=== PATIENT | female | born 1930 | race Caucasian/White ===

== ENCOUNTER 2017-04-07 08:00 | Outpatient (CLI) | payer MEDICARE, OTHER | END 2017-04-07 08:01 | disposition home or self-care (01) | LOC: BICMAMMO 08:00 | PROVIDERS: ATTEND Family Medicine | DX: Z12.31 Encounter for screening mammogram for malignant neoplasm of breast (principal) | CPT/HCPCS: 77063; G0202; 77067 ==

== ENCOUNTER 2017-09-06 12:17 | Outpatient (CLI) | payer MEDICARE, OTHER | END 2017-09-06 12:18 | disposition home or self-care (01) | LOC: BICRAD 12:17 | PROVIDERS: ATTEND Family Medicine | DX: M25.431 Effusion, right wrist (principal); M15.4 Erosive (osteo)arthritis; M25.441 Effusion, right hand ==

== ENCOUNTER 2017-09-25 14:03 | Observation (INO) | payer MEDICARE, OTHER ==
[2017-09-25 14:40] LABS: #Basophils 0.1 thou/uL (0.0-0.2); #Eosinphils 0.2 thou/uL (0.0-0.7); #Lymphocytes 2.1 thou/uL (1.20-3.40); #Monocytes 0.8 thou/uL (0.11-0.59); #Neutrophils 3.9 thou/uL (1.40-6.50); %Basophils 1.4 % (0.0-1.0); %Eosinophils 2.8 % (0.0-10.0); %Lymphocytes 29.8 % (21.0-51.0); Mean Corpuscular HGB CONC 33.1 g/dL (32.0-36.0); Mean Corpuscular Hemoglobin 32.3 pg (27.0-31.0); Mean Corpuscular Volume 97.8 fl (81.0-99.0); Mean Platelet Volume 8.5 fL (7.4-10.4); Platelet Count 232 thou/uL (130-400); RBC Distribution Width 13.8 % (11.5-14.5); Red Blood Cell (RBC) Count 3.71 mill/uL (4.20-5.40)
[2017-09-25 15:01] LABS: ALT (SGPT) 11 U/L (8-55); AST (SGOT) 18 U/L (5-34); Albumin 3.9 g/dL (3.4-4.8); Alkaline Phosphatase 72 U/L (40-150); Anion Gap 14 mmol/L (10-20); BUN (Urea Nitrogen) 23 mg/dL (9.8-20.1); Bilirubin, Total 1.8 mg/dL (0.2-1.2); CK (CPK) 43 U/L (29-168); Calc. Creatinine Clearance 0 mL/min (70-130); Calcium 9.1 mg/dL (7.8-10.44); Carbon Dioxide 30 mmol/L (23-31); Chloride 100 mmol/L (98-107); Estimated GFR-MDRD 53; Globulin 3.5 g/dL (2.4-3.5); Glucose 115 mg/dL (83-110); Potassium 4.3 mmol/L (3.5-5.1); Protein, Total 7.4 g/dL (6.0-8.3); Sodium 140 mmol/L (136-145)
[2017-09-25 15:04] LABS: CKMB 0.7 ng/mL (0-6.6); Troponin I 0.082 ng/mL (< 0.028)
--- NOTE | 2017-09-25 15:05 | RAD ---
PORTABLE CHEST: Date: 09/25/17 HISTORY: Chest pain. COMPARISON: 09/02/16. FINDINGS: Heart size is enlarged. There are postop sternotomy changes and an aortic valve replacement. Lungs ar e clear of any infiltrates. Chronic appearing changes are seen. IMPRESSION: Cardiomegaly. No acute process. POS: [facility]
[2017-09-25] MEDS ORDERED: Nitroglycerin 2% Ointment 1 INCH/1 GM Packet ONE (15:18)
[2017-09-25 15:26] LABS: INR-International Normal Ratio 2.2; PTT 40.4 SEC (22.9-36.1); Prothrombin Time 24.8 SEC (12.0-14.7)
[2017-09-25] MEDS ORDERED: Simvastatin 20 MG TAB PO SCH (18:00)
[2017-09-25] MEDS ORDERED: Acetaminophen 325 MG TAB PO PRN (18:01)
[2017-09-25] MEDS ORDERED: Nitroglycerin 0.4 MG TAB (25 Tab Bottle) PO PRN (18:01)
[2017-09-25] MEDS ORDERED: Warfarin Sodium 5 MG TAB PO SCH (18:30)
[2017-09-25 19:06] VITALS: BMI 40.8
[2017-09-25] MEDS ORDERED: Ondansetron ODT 4 MG TAB SL PRN (19:39)
[2017-09-25] MEDS ORDERED: Ondansetron HCl/PF 4 MG/2 ML Vial IVP PRN (19:39)
--- NOTE | 2017-09-25 20:08 | HP ---
DATE OF SERVICE: 09/25/2017 PRIMARY CARE PROVIDER: Dr. Moshe Lerner. CHIEF COMPLAINT: "Feeling in my chest." HISTORY OF PRESENT ILLNESS: This is an 86-year-old female with cardiac history including heart failure requiring hospitalization in 2009; atrial fibrillation on full anticoagulation; hypertension; dyslipidemia; gout; who presents to the emergency room with the complaint of an abnormal feeling in her chest. She reports that it occurred today at 13:30 while she was sitting. It was occurred 1-2 times in the past, the most recent episode was 3 days ago where it occurred twice, once for one hour and once for 30 minutes. She noticed each time that her pulse would go up to the low 100s when this happens. She denies any symptoms in the past 2 days, denies any precipitating or relieving factors. She describes the feeling as a light pain in her left lower chest that was constant, lasting 30-45 minutes. She denies any lightheadedness, nausea or vomiting, she did note some shortness of breath that has since resolved. She has not been sick recently and denies any fevers or chills. She was started on a new medicine a few weeks ago for gout, does not know the name of it, denies missing any medications or any other new medications. The patient reports her last echocardiogram was about a year ago and she is scheduled for one tomorrow in Dr. Lucero' office. She also notes a 1-pound weight gain in the past 2 days, and states that she has been consistent with her Lasix dosing. In the emergency room, the patient was started on nitro paste one inch as well as 324 mg of aspirin and hospitalist called for admission. Her pacemaker was interrogated and showed brief A Fib on September 14. ALLERGIES TO MEDICATIONS: 1. CELEBREX. 2. SULFA. CURRENT MEDICATIONS: Reconciled with the list which is missing her gout medication. 1. Multivitamin daily. 2. MiraLax 1/4 capful daily as needed. 3. Tylenol extra strength 2 tablets once daily. 4. Calcium and vitamin D 600 mg 1 tablet twice daily. 5. Carvedilol 12.5 mg b.i.d. 6. Lasix 20 mg daily. 7. Flecainide 50 mg b.i.d. 8. Coumadin 5 mg at dinner. 9. Iron 325 mg once daily. 10. Simvastatin 20 mg every other day with her last dose 2 days ago. PAST MEDICAL HISTORY: 1. Coronary artery disease with history of heart failure, requiring hospitalization in 2010. 2. Atrial fibrillation. 3. Aortic valve replacement. 4. Hypertension. 5. Dyslipidemia. 6. Gout. 7. History of shingles. PAST SURGICAL HISTORY: 1. Left shoulder surgery. 2. Hemorrhoidectomy. 3. Aortic valve replacement. 4. Pacemaker. 5. Hysterectomy. 6. Bilateral eye implants. FAMILY HISTORY: Significant for a dad who of heart failure and a mom who had a heart attack. SOCIAL HISTORY: The patient denies any tobacco or alcohol. Her surrogate decision maker is her daughter, Anna Israel, phone number [phone]. The patient is a FULL CODE. REVIEW OF SYSTEMS: Negative for abdominal pain, change in urination, lightheadedness or dizziness, nausea or vomiting, fever or chills. Positive for shortness of breath, although she denies this now. All remaining review of systems are reviewed and negative. PHYSICAL EXAMINATION: VITAL SIGNS: On arrival to the emergency room, blood pressure 152/79, pulse 76 , respirations 18, saturations 94% on room air, temperature 98.4. GENERAL: Awake, alert, responsive, in no apparent distress, able to speak in full sentences. HEENT: Pupils are equal and round. Extraocular movements intact. Oral mucosa is pink and moist. NECK: Supple, nontender. LYMPHATICS: No palpable cervical or supraclavicular lymphadenopathy. VASCULAR: No carotid bruits. LUNGS: Clear to auscultation bilateral. HEART: Normal S1, S2, regular rate and rhythm, no audible murmurs. ABDOMEN: Soft. Present bowel sounds. Nontender, nondistended. EXTREMITIES: Trace pitting edema bilateral. Pulses 2+ dorsalis pedis pulses bilateral. NEUROLOGIC: Moves arms and legs equally. No focal deficits. SKIN: No visible rashes. PSYCHIATRIC: She is alert and oriented x4, euthymic and thought process is linear, logical, and goal directed. LABORATORY DATA AND IMAGING: Reviewed. 1. CBC: 7, 12, 36.4, 232. 2. INR 2.2. 3. Renal panel: 140, 4.3, 100, 30, 23, 1.0, 115. 4. Liver function test: Total bilirubin 1.8, AST 18, ALT 11, alkaline phosphatase 72. 5. Troponin 0.082. 6. BNP 697.5. 7. EKG is personally reviewed and it is a paced rhythm. 8. Chest x-ray is personally reviewed and shows cardiomegaly with no acute process. IMPRESSION: 1. Palpitations/chest pain in a patient with known coronary artery disease, and a history of heart failure. The patient is currently stable and asymptomatic. 2. Atrial fibrillation in the patient with a pacemaker, therapeutic on Coumadin. 3. Hypertension, not optimally controlled currently. 4. Dyslipidemia, on statin therapy. 5. Gout, on unknown medication. PLAN: 1. Observation status in the hospital. 2. Rule out with 3 troponins, echocardiogram tomorrow and consultation with her passenger locomotive engineer, Dr. Lucero. 3. Continuing all of her usual medications to include her cardiac medication and Coumadin as she is appropriately dosed with a therapeutic INR. 4. We will continue the nitro paste for now, removing this if needed. 5. The patient is fully anticoagulated and has received an aspirin. We will hold on any additional aspirin for now. 6. DVT prophylaxis. She is therapeutic on Coumadin. 7. Gastrointestinal prophylaxis not indicated. 8. Code status is FULL. 9. The patient is at high risk given age, comorbidities, and current presentation. 10. I reviewed the plan of care with the patient and her daughter. No questions or further needs at the end of evaluation. Of note, her daughter is her surrogate decision maker. ZAHIDA
[2017-09-25] MEDS: Carvedilol 6.25 MG TAB PO SCH (20:12)
[2017-09-25] MEDS: Flecainide 50 MG TAB PO SCH (20:12)
[2017-09-25] MEDS: Simvastatin 20 MG TAB PO SCH (20:22)
[2017-09-25 21:28] LABS: Troponin I 0.094 ng/mL (< 0.028)
[2017-09-25] MEDS: Nitroglycerin 2% Ointment 1 INCH/1 GM Packet TOP SCH (22:12)
[2017-09-26 05:13] LABS: INR-International Normal Ratio 2.1; Prothrombin Time 24.5 SEC (12.0-14.7)
[2017-09-26] MEDS: Nitroglycerin 2% Ointment 1 INCH/1 GM Packet TOP SCH ×2 (05:44→14:14)
[2017-09-26] MEDS: Acetaminophen 500 MG TAB PO SCH (09:05)
[2017-09-26] MEDS: Furosemide 20 MG TAB PO SCH (09:05)
[2017-09-26] MEDS: Carvedilol 6.25 MG TAB PO SCH ×2 (09:05→19:45)
[2017-09-26] MEDS: Flecainide 50 MG TAB PO SCH ×2 (09:05→19:46)
[2017-09-26] MEDS ORDERED: Iopamidol 370 76% 100 ML VIAL ONE (09:36)
[2017-09-26] MEDS ORDERED: Communication Order-Pharmacy FS SCH (12:45)
--- NOTE | 2017-09-26 12:49 | CON ---
DATE OF CONSULTATION: 09/26/2017 REASON FOR CONSULTATION: Unstable angina. HISTORY OF PRESENT ILLNESS: Ms. Dave is a very pleasant 86-year-old woman who is a patient of Dr. Derian Lucero. She recently presented with chest pain that began on . It lasted for 1 hour. Sh e then states that evening she had a second episode that lasted for 30 minutes. She states she did w ell on Tuesday, Tuesday, and then had a recurrent episode on Tuesday. She then proceeded to the emerg ency room with the above. No nausea, vomiting or other associated symptoms. Her troponin was felt t o be indeterminate. She is currently chest pain free. From a CV standpoint her last stress test was dated 2013 was negative for ischemia. She does have a history of aortic valve replacement, bioprosthetic valve in addition to a pacemaker. Last LVEF is 45 -50%. PAST MEDICAL HISTORY: Atrial fibrillation, aortic valve replacement (bioprosthetic valve), hypertens ion, hyperlipidemia, gout, shingles, shoulder surgery, hemorrhoidectomy, pacemaker implantation, hyst erectomy. SOCIAL HISTORY: No current tobacco or alcohol use. CURRENT MEDICATIONS: Include flecainide, Coumadin, iron, Zocor, multivitamin, MiraLax, Tylenol, calc ium, carvedilol and Lasix. REVIEW OF SYSTEMS: Ten point review of systems is reviewed as above, otherwise negative. PHYSICAL EXAMINATION: VITAL SIGNS: Blood pressure 130/56, pulse 61, temperature 98.3. GENERAL: Patient is a pleasant female who is in no acute distress. The patient appears her stated ag e. NEUROLOGIC: The patient is alert and oriented times 3 with no focal neurologic deficits. HEENT: Sclerae without icterus. Mouth has moist mucous membranes with normal pallor. NECK: No JVD. Carotid upstroke brisk. No bruits bilaterally. LUNGS: Clear to auscultation with unlabored respirations. BACK: No scoliosis or kyphosis. CARDIAC: Regular rate and rhythm with normal S1 and S2. No S3 or S4 noted. No significant rubs, mur murs, thrills, or gallops noted throughout the precordium. PMI is not displaced. There is no parast ernal heave. ABDOMEN: Soft, nontender, nondistended. No peritoneal signs present. No hepatosplenomegaly. No abn ormal striae. EXTREMITIES: 2+ femoral and 2+ dorsalis pedis pulses. No cyanosis, clubbing, or edema. SKIN: No gross abnormalities. PERTINENT LABS: Hemoglobin 12. INR 2.1, creatinine 1.0. Peak troponin 0.094. EKG shows paced rhyt hm. IMPRESSION: 1. Unstable angina. 2. Bioprosthetic valve. 3. Atrial fibrillation on Coumadin therapy. RECOMMENDATIONS: Ms. Dave's symptoms certainly suggest unstable angina. She has had a total of 4 episodes that occurred at rest, felt to be at least moderate over the last 4-5 days. Given her mild troponin elevation, I would recommend coronary angiography plus PCI. I discussed the procedure in fu ll detail with Ms. Dave. I also discussed the above with her daughter. The risks of the procedure included, but are not limited to the following: , stroke, [place], need for emergency surgery, loss of limb, bleeding, and infection, as well as a reaction to the dye causing kidney failure and needin g long-term dialysis. I also discussed the risks of PCI to include all of the above including hill ry dissection and perforation in addition to acute stent thrombosis and restenosis. All questions ab out the procedure were answered. Given the above, the patient agreed to proceed with coronary angiog schuyler and possible PCI. All questions were answered. Given the above, the patient agreed to proceed with above procedure. W e will proceed with a radial approach given INR of 2.1. If radial not approachable would then procee d with a right groin access in the next 1-2 days.
[2017-09-26] MEDS: Sodium Chloride 0.9% 1,000 ML IV SCH (13:25)
[2017-09-26] MEDS ORDERED: Heparin 10,000 UNITS/1 ML VIAL ONE (14:20)
[2017-09-26] MEDS ORDERED: Nitroglycerin 100MG/250ML BOT 250 ML ONE (14:20)
[2017-09-26] MEDS ORDERED: Verapamil 5 MG/2 ML VIAL ONE (14:20)
[2017-09-26] MEDS ORDERED: Lidocaine 1% (PF) 30 ML VIAL ONE (14:25)
[2017-09-26] MEDS ORDERED: Acetaminophen/Codeine 30-300mg Tablet PO PRN ×2 (15:05)
[2017-09-26] MEDS ORDERED: Nitroglycerin 0.4 MG TAB (25 Tab Bottle) SL PRN (15:05)
[2017-09-26] MEDS ORDERED: traMADol HCl 50 MG TAB PO PRN (15:05)
[2017-09-26] MEDS ORDERED: Sodium Chloride 0.9% 1,000 ML IV SCH (15:15)
[2017-09-26] MEDS ORDERED: Sodium Chloride 0.9% 200 ML IV SCH (15:15)
[2017-09-26] MEDS ORDERED: Warfarin Sodium 5 MG TAB PO SCH (17:00)
--- NOTE | 2017-09-26 19:11 | PDOC.PN ---
- Subjective Encounter Start Date: 09/26/17 Encounter Start Time: 18:45 Subjective: f/u for CP and HTN. No current complaints of CP. - Objective MAR Reviewed: Yes Vital Signs & Weight: Vital Signs (12 hours) Temp Pulse Resp BP Pulse Ox 09/26/17 15:15 61 14 146/63 H 94 L 09/26/17 11:05 98.3 F 61 12 130/56 L 94 L 09/26/17 09:29 90 L 09/26/17 08:00 98.6 F 65 12 09/26/17 07:10 98.6 F 65 12 143/61 H 97 Weight Weight 201 lb 6.4 oz I&O: 09/25/17 09/26/17 09/27/17 06:59 06:59 06:59 Intake Total 300 930 Output Total 700 Balance 300 230 Result Diagrams: 09/25/17 14:31 09/25/17 14:31 Additional Labs: Laboratory Tests 02/14/16 02/15/16 09/25/17 10:24 04:23 14:31 INR Troponin I 0.082 H B-Natriuretic Peptide 837.2 H 1166.3 H Lipase 09/25/17 09/25/17 09/25/17 14:31 14:31 14:31 INR 2.2 Troponin I B-Natriuretic Peptide 697.5 H Lipase 24 09/25/17 09/25/17 09/26/17 17:54 20:45 04:35 INR 2.1 Troponin I 0.090 H 0.094 H B-Natriuretic Peptide Lipase Radiology Reviewed by me: Yes (2D echo - EF 50-55%, diast dysfxn, bioprosthetic AV) EKG Reviewed by me: Yes (Tele - AV pacing) Phys Exam - Physical Examination Constitutional: NAD HEENT: PERRLA, sclera anicteric, oral pharynx no lesions Neck: no nodes, no JVD, supple, full ROM Respiratory: no wheezing, no rales, no rhonchi, clear to auscultation bilateral II/ NAE in RUSB S1, S2 Cardiovascular: RRR, no rub, gallop Gastrointestinal: soft, non-tender, no distention, positive bowel sounds Musculoskeletal: no edema, pulses present Neurological: non-focal, normal sensation, moves all 4 limbs Psychiatric: normal affect, A&O x 3 Skin: no rash, normal turgor, cap refill <2 seconds Dx/Plan (1) Chest pain Code(s): R07.9 - CHEST PAIN, UNSPECIFIED Status: Acute Comment: LHC not showing flow limiting disease, recommending medical mgmt (2) Elevated troponin I level Code(s): R74.8 - ABNORMAL LEVELS OF OTHER SERUM ENZYMES Status: Acute Comment: [facility] negative for acute obstruction/lesions, (3) HTN (hypertension) Code(s): I10 - ESSENTIAL (PRIMARY) HYPERTENSION Status: Chronic Qualifiers: Hypertension type: essential hypertension Qualified Code(s): I10 - Essential (primary) hypertension Comment: Continue Coreg 12.5mg bid (4) CKD (chronic kidney disease), stage III Code(s): N18.3 - CHRONIC KIDNEY DISEASE, STAGE 3 (MODERATE) Status: Chronic Comment: Avoid nephrotoxic meds and limit contrast exposure, continue IVF's post -cath - Plan out of bed/ambulate, DVT proph w/SCDs Stable overall -: Continue IVF's another 24h -: Continue Coreg 12.5mg BID -: D/C Nitro ointment -: Continue Coumadin 5mg daily * Home in am 09/27/17
[2017-09-26] MEDS: Simvastatin 20 MG TAB PO SCH (19:46)
[2017-09-27] MEDS: Sodium Chloride 0.9% 1,000 ML IV SCH ×2 (01:58→09:59)
[2017-09-27] MEDS ORDERED: Furosemide 40 MG/4 ML VIAL ONE (09:53)
[2017-09-27] MEDS: Carvedilol 6.25 MG TAB PO SCH (09:57)
[2017-09-27] MEDS: Flecainide 50 MG TAB PO SCH (09:58)
[2017-09-27] MEDS: Furosemide 20 MG TAB PO SCH (09:58)
[2017-09-27] MEDS: Acetaminophen 500 MG TAB PO SCH (09:58)
[2017-09-27] MEDS: Furosemide 20 MG/2 ML VIAL SLOW IVP SCH ×2 (11:35→16:04)
[2017-09-27 16:00] VITALS: BP 129/58; TEMP 98.5
[2017-09-27] MEDS ORDERED: Furosemide 20 MG/2 ML VIAL SLOW IVP SCH (16:45)
--- NOTE | 2017-09-28 02:36 | DIS ---
DATE OF ADMISSION: 09/25/2017 DATE OF DISCHARGE: 09/27/2017 DISCHARGE DIAGNOSES: 1. Chest pain, non-cardiac. 2. Elevated troponin I secondary to demand ischemia. 3. Diastolic dysfunction with preserved ejection fraction of 55%. 4. Bioprosthetic aortic valve with chronic anticoagulation with Coumadin. 5. Hypertension, stable. 6. Chronic kidney disease, stage 3, stable. CONSULTATIONS: Dr. Jain with Cardiology Service. PERTINENT LABORATORY AND X-RAY FINDINGS: Troponin I ranged between 0.082 to 0.094. BNP 698, previou sly noted on 02/15/2016. CBC showed a white blood cell count of 7.0, hemoglobin 12, hematocrit 36, p latelet count 232. PT 24.5, INR 2.1. Portable chest x-ray dated 09/25/2017 showed cardiomegaly with out acute process. A 2D transthoracic echocardiogram dated 09/26/2017 showed ejection fraction of 50 %-55%. Diastolic dysfunction noted. Uiofbcmi-bs-jheftr left atrial enlargement. Gznj-fy-zeyqvykj m itral valve regurgitation. Bioprosthetic aortic valve noted. HOSPITAL COURSE: Patient was observed on the telemetry unit after initial presentation for chest benny n. The patient underwent extensive evaluation including serial troponins, which were positive x3. D ue to patient's history of hypertension and dyslipidemia, patient underwent evaluation by the cardiol ogy service with left heart catheterization showing no flow limiting disease. A 2D transthoracic ech ocardiogram was performed showing ejection fraction of 50%-55% with diastolic dysfunction and moderat e-to-severe left atrial enlargement. Postoperatively, the patient was continued on IV fluids for glory al prophylaxis, however, developed pulmonary edema and shortness of breath with mild hypoxia, resolvi ng with IV and oral Lasix. Telemetry monitoring showed AV pacing with heart rates in the 60s, and pa fly overall remained clinically stable during observation. I have examined the patient at the time of discharge and discussed pertinent laboratory findings and followup instructions. The patient and family verbalized understanding and agreement and will discharge home on 09/27/2017. DISCHARGE MEDICATIONS: 1. Acetaminophen 1000 mg p.o. daily p.r.n. 2. Calcium carbonate 1 capsule p.o. b.i.d. 3. Coreg 12.5 mg p.o. b.i.d. 4. Ferrous sulfate 325 mg p.o. daily. 5. Flecainide 50 mg p.o. b.i.d. 6. Lasix 20 mg p.o. daily. 7. MiraLax 17 grams p.o. daily. 8. vitamin 1 tab p.o. daily. 9. Simvastatin 20 mg p.o. q.48 hours. 10. Coumadin 5 mg daily, except Fridays. FOLLOWUP: The patient will follow up with her primary care provider, Dr. Moshe Lerner within 7 days o f discharge. Patient will follow up with Dr. Derian Lucero with [facility] in 2-3 weeks after discharge. Patient will follow up with the [facility]in [facility] on 10/05/2017 at 8:20 a.m. P atient will follow up with [facility] on 10/05/2017 at 8: 20 a.m. CONDITION ON DISCHARGE: Stable. ACTIVITY: Ad sunita. DIET: Coumadin prudent. CODE STATUS: FULL. DISPOSITION: Home, 09/27/2017.
--- NOTE | 2017-10-15 15:45 | EKG ---
Test Reason : Blood Pressure : / mmHG Vent. Rate : 081 BPM Atrial Rate : 108 BPM P-R Int : 000 ms QRS Dur : 190 ms QT Int : 446 ms P-R-T Axes : 000 -72 108 degrees QTc Int : 518 ms AV sequential or dual chamber electronic pacemaker Confirmed by KATHERINE PISANO, LUCILA ([id number]), assistant editor JOSE GUADALUPE LOYA ([id number]) on 10/15/2017 3:45:21 PM Referred By: Confirmed By:LUCILA MURPHY MD
== END 2017-09-27 17:25 | disposition home or self-care (01) ==
LOC: ERS 14:03 → 2SW 18:19
PROVIDERS: ADMIT Family Medicine; ATTEND Family Medicine
DX: R07.89 Other chest pain (principal); I13.0 Hypertensive heart and chronic kidney disease with heart failure and stage 1 through stage 4 chronic kidney disease, or unspecified chronic kidney disease; N18.3 Chronic kidney disease, stage 3 (moderate); I50.9 Heart failure, unspecified; I25.110 Atherosclerotic heart disease of native coronary artery with unstable angina pectoris; E78.5 Hyperlipidemia, unspecified; I24.8 Other forms of acute ischemic heart disease; I48.91 Unspecified atrial fibrillation; M10.9 Gout, unspecified; Z79.899 Other long term (current) drug therapy; Z79.01 Long term (current) use of anticoagulants; Z88.2 Allergy status to sulfonamides; Z88.8 Allergy status to other drugs, medicaments and biological substances
CPT/HCPCS: 71045; 80053; 82550; 82553; 83690; 83880; 84484 ×2; 85025; 85610 ×2; 85730; 93005; 93306; 93454; 94760 ×3; 96361 ×2; 96374; 96376; 99285; C1769; G0378; 36415; A4216; J1644; J1940; J2001

== ENCOUNTER 2018-04-19 11:10 | Outpatient (CLI) | payer MEDICARE, OTHER | END 2018-04-19 11:11 | disposition home or self-care (01) | LOC: BICMAMMO 11:10 | PROVIDERS: ATTEND Family Medicine | DX: Z12.31 Encounter for screening mammogram for malignant neoplasm of breast (principal); N63.21 Unspecified lump in the left breast, upper outer quadrant; R92.1 Mammographic calcification found on diagnostic imaging of breast; Z80.3 Family history of malignant neoplasm of breast | CPT/HCPCS: 77063; 77067 ==

== ENCOUNTER 2018-04-26 08:47 | Outpatient (CLI) | payer MEDICARE, OTHER ==
--- NOTE | 2018-04-26 10:50 | ULT ---
LEFT BREAST ULTRASOUND LIMITED: HISTORY: An 87-year-old female who presents for additional views of the left breast and left breast ultrasound . FINDINGS: Area of concern in the left breast is at 3 o'clock 7 cm from the nipple. There is a poorly circumscr ibed hypoechoic mass measuring 0.5 x 0.6 x 0.7 cm in size. This is suspicious and corresponds to the mammographic finding. IMPRESSION: BIRADS category 4, suspicious finding. Poorly circumscribed solid mass at 3 o'clock 7 cm from the ni pple. Ultrasound-guided biopsy is recommended. Findings were discussed with the patient who was in agreement. Additionally, referring physician's o ffice will be contacted by [facility] in regards to scheduling for the ultrasound-guided biopsy. CODE CR POS: [facility]
== END 2018-04-26 08:48 | disposition home or self-care (01) ==
LOC: BICMAMMO 08:47
PROVIDERS: ATTEND Family Medicine
DX: N63.23 Unspecified lump in the left breast, lower outer quadrant (principal); R92.1 Mammographic calcification found on diagnostic imaging of breast; Z80.3 Family history of malignant neoplasm of breast
CPT/HCPCS: 76642; 77065; G0279

== ENCOUNTER → 2018-05-08 | Day surgery (SDC) | payer MEDICARE, OTHER ==
--- NOTE | 2018-05-08 15:31 | ULT ---
ULTRASOUND GUIDED CORE BIOPSY OF THE LEFT BREAST: Indication: Left breast mass at the 3 o'clock position, 6 cm from the nipple. Comparison: Diagnostic left breast ultrasound dated 04-26-18. TECHNIQUE: Confirmation of Coumadin cessation was made with the Coumadin clinic prior to the procedure. The mey picious abnormality in the left breast at the 3 o'clock position, 6-7 cm from the nipple was identifi ed. Informed consent was obtained. Site overlying the left breast was prepped and draped in the usual sterile fashion. Buffered 1% Lidocaine was administered to overlying subcutaneous tissues. Under ult rasound guidance, four separate core samples were obtained of the left breast mass lesion. Patient to lerated the biopsy without difficulty. Pressure was held at the biopsy site until hemostatis was obta ined. Follow up left breast mammogram for confirmation of placement. IMPRESSION: BIRADS category 4 - suspicious abnormality. Status post ultrasound guided core biopsy of the left breast mass seen at the 3 o'clock position, 6-7 cm from the nipple. POS: [facility]
== END ==
LOC: BICULT 12:24
PROVIDERS: ATTEND Family Medicine
PROC: 0HBU3ZX Excision of Left Breast, Percutaneous Approach, Diagnostic (ICD-10-PCS; principal; 2018-05-08)
DX: C50.812 Malignant neoplasm of overlapping sites of left female breast (principal); Z17.0 Estrogen receptor positive status [ER+]; Z79.01 Long term (current) use of anticoagulants; Z79.899 Other long term (current) drug therapy; Z88.2 Allergy status to sulfonamides; Z88.6 Allergy status to analgesic agent
CPT/HCPCS: 19083; 88305; 88361

== ENCOUNTER 2018-05-15 15:47 | Outpatient (CLI) | payer MEDICARE, OTHER ==
[2018-05-15 16:38] LABS: #Basophils 0.1 thou/uL (0.0-0.2); #Eosinphils 0.2 thou/uL (0.0-0.7); #Lymphocytes 2.5 thou/uL (1.20-3.40); #Monocytes 0.8 thou/uL (0.11-0.59); #Neutrophils 3.9 thou/uL (1.40-6.50); %Basophils 1.2 % (0.0-1.0); %Eosinophils 2.3 % (0.0-10.0); %Lymphocytes 33.5 % (21.0-51.0); %Monocytes 10.6 % (0.0-10.0); %Neutrophils 52.4 % (42.0-75.0); Hemoglobin 12.5 g/dL (12.0-16.0); Mean Corpuscular HGB CONC 32.1 g/dL (32.0-36.0); Mean Corpuscular Hemoglobin 33.4 pg (27.0-31.0); Mean Platelet Volume 8.4 fL (7.4-10.4); Platelet Count 275 thou/uL (130-400); RBC Distribution Width 13.6 % (11.5-14.5); Red Blood Cell (RBC) Count 3.74 mill/uL (4.20-5.40); White Blood Cell (WBC) Count 7.4 thou/uL (4.8-10.8)
[2018-05-15 16:42] LABS: PTT 36.7 SEC (22.9-36.1); Prothrombin Time 22.3 SEC (12.0-14.7)
[2018-05-15 16:56] LABS: Anion Gap 13 mmol/L (10-20); BUN (Urea Nitrogen) 26 mg/dL (9.8-20.1); Calc. Creatinine Clearance 0 mL/min (70-130); Calcium 9.2 mg/dL (7.8-10.44); Carbon Dioxide 35 mmol/L (23-31); Chloride 100 mmol/L (98-107); Estimated GFR-MDRD 48; Glucose 93 mg/dL (83-110); Potassium 3.9 mmol/L (3.5-5.1); Sodium 144 mmol/L (136-145)
--- NOTE | 2018-05-15 17:34 | RAD ---
FRONTAL AND LATERAL IMAGING OF CHEST: Date: 05/15/18 COMPARISON: 04/13/10. HISTORY: Preoperative patient. FINDINGS: There is a dual lead transvenous pacing device inserted via a left subclavian approach. Midline sharpe otomy wires are present. Mechanical valve overlies region of aortic valve. There is prominence of the cardiac silhouette. There is no pneumothorax, pleural fluid, focal consolidation, or alveolar edema. Stable sclerotic focus noted within proximal right humerus. IMPRESSION: Stable appearance of the chest as detailed above. POS: [facility]
--- NOTE | 2018-05-16 09:25 | EKG ---
Test Reason : Blood Pressure : / mmHG Vent. Rate : 076 BPM Atrial Rate : 076 BPM P-R Int : 102 ms QRS Dur : 194 ms QT Int : 466 ms P-R-T Axes : 071 -77 103 degrees QTc Int : 524 ms AV sequential or dual chamber electronic pacemaker When compared with ECG of 25-SEP-2017 14:08, Vent. rate has decreased BY [address] Marry STEINBERG ([id number]) on 05/16/2018 9:24:45 AM Referred By: SYDNEY Confirmed By:DR. Marry STEINBERG
== END 2018-05-15 15:48 | disposition home or self-care (01) ==
LOC: LABBT 15:47
PROVIDERS: ATTEND Specialist
DX: Z01.818 Encounter for other preprocedural examination (principal); C50.912 Malignant neoplasm of unspecified site of left female breast; Z17.0 Estrogen receptor positive status [ER+]
CPT/HCPCS: 71046; 80048; 85025; 85610; 85730; 93005; 93010

== ENCOUNTER 2018-05-23 07:28 | Day surgery (SDC) | payer MEDICARE, OTHER ==
[2018-05-15 16:15] VITALS: BMI 38.2
--- NOTE | 2018-05-23 09:36 | NM ---
LEFT BREAST LYMPHOSCINTIGRAPHY: CLINICAL HISTORY: An 87-year-old female with biopsy-diagnosed ductal carcinoma. TECHNIQUE: Informed consent was obtained. The patient was escorted to the lymphoscintigraphy suite. The patien t was placed into the supine position. The left breast was prepped and draped in a standard sterile fashion. Subsequently, four separate intradermal injections, totalling 0.419 millicuries, of technet ium 99m filtered sulfur colloid, subcutaneous, were injected in a periareolar distribution into the l eft breast. There were no procedural complications. The patient was subsequently imaged scintigraphically. FINDINGS: Imaging does reveal four separate aliquots of radiotracer about the periareolar aspect of the left br east. Upon 15 minutes of imaging, there is markie activity localizing to the left axilla. IMPRESSION: 1. Technically successful left breast lymphoscintigraphy. 2. Radiotracer activity localized to the left axillary lymph nodes. POS: [facility]
[2018-05-23] MEDS ORDERED: CEFAZOLIN 2 GM/50 ML BAG ONE (09:41)
[2018-05-23] MEDS ORDERED: Ketorolac Tromethamine 30 MG/ML VIAL ONE (09:41)
[2018-05-23 09:53] LABS: INR-International Normal Ratio 1.3; Prothrombin Time 16.2 SEC (12.0-14.7)
[2018-05-23 09:54] LABS: PTT 31.8 SEC (22.9-36.1)
[2018-05-23] MEDS ORDERED: Lidocaine 1% PF 5 ML VIAL ONE (10:42)
[2018-05-23] MEDS ORDERED: Ondansetron PF 4 MG/2 ML Vial ONE (10:42)
[2018-05-23] MEDS ORDERED: PROPOFOL 200 MG/20 ML VIAL ONE (10:42)
[2018-05-23] MEDS ORDERED: ePHEDrine 50 MG/ML VIAL ONE (10:42)
[2018-05-23] MEDS ORDERED: PHENYLEPHRINE-NS 100 MCG/ML 10 ML SYRINGE ONE (10:42)
[2018-05-23] MEDS ORDERED: Isosulfan Blue 50 MG/5 ML VIAL ONE (12:46)
[2018-05-23] MEDS ORDERED: Bupivacaine HCl 0.5%/Epinephrine 1:200,000/PF 30 ml Vial ONE ×2 (12:46→14:24)
[2018-05-23] MEDS ORDERED: Ketamine 50 MG/ML (10ML VIAL) ONE (12:59)
[2018-05-23] MEDS ORDERED: Fentanyl 100 MCG/2 ML VIAL ONE ×2 (12:59→15:45)
--- NOTE | 2018-05-23 15:36 | MMO ---
SPECIMEN RADIOGRAPH: 05/23/18 INDICATION: Status post excisional biopsy for left breast mass. Patient previously has undergone lymphoscintigra phy prior to the procedure. FINDINGS: Single view from XI specimen reveals a partially imaged wire with an S-shaped marking clip in additio n to erika shaped hyperdensities. IMPRESSION: Specimen radiograph as above. POS: [facility]
[2018-05-23] MEDS ORDERED: traMADol HCl 50 MG TAB ONE (18:04)
--- NOTE | 2018-05-24 12:58 | OP ---
DATE OF PROCEDURE: 05/23/2018 PREOPERATIVE DIAGNOSIS: Left breast cancer. POSTOPERATIVE DIAGNOSIS: Left breast cancer. OPERATIONS PERFORMED: Left axillary sentinel lymph node biopsy, ultrasound-guided left breast needle localization, left breast needle localized lumpectomy. ANESTHESIA: General endotracheal. INDICATIONS: The patient is an 87-year-old female. Recent mammography revealed a lesion in the outer aspect of the left breast. This was biopsied and found to be a malignancy. After discussion of options, she presents this time for breast-conserving surgery and sentinel node biopsy. Preoperatively, she had lymphoscintigraphy performed revealing a left axillary sentinel lymph node. DESCRIPTION OF OPERATION: Informed consent was obtained. The patient was taken to the operating room where general anesthesia was obtained with the patient in supine position. The left breast was infiltrated with 2.5 mL of Lymphazurin in the periareolar subdermal tissue and massaged for 5 minutes. Breast and axilla were prepped with ChloraPrep and draped in sterile fashion. Attention was turned first to the axilla. Local anesthetic was infiltrated using 0.25% Marcaine with epinephrine. A transverse incision was created in the inferior aspect of the axilla and dissection was carried through the skin and subcutaneous tissue. Dissection was carried out within the axilla utilizing the Neoprobe to identify areas of maximum radio intensity. There was one dominant sentinel lymph node that was identified. This was somewhat firm and enlarged. This was dissected circumferentially and all investing lymphatics divided between clamps and 3-0 silk ties and the specimen was passed off the field. Further inspection within the axilla revealed no evidence of other blue-stained lymph nodes nor any significant radioactive material. I was able to palpate one additional lymph node. This was dissected and removed in a similar fashion. The wound was closed in layers with 3-0 and 4-0 Monocryl. Additional local anesthetic was infiltrated during closure. Dermabond was placed externally. Attention was then turned to the breast. Using ultrasound, I was able to identify the area of the prior biopsy site at the 3 o'clock radian about 7-8 cm from the nipple. The area of the malignancy was marked on the skin in a grid-type fashion. I then placed a localizing needle in a lateral to medial fashion through the concerning lesion. Local anesthetic was infiltrated and transverse incision was created based upon the needle insertion site. Dissection was carried through the skin and subcutaneous tissue. Flaps were raised superiorly and inferiorly. I grasped the tissue and to which the needle entered and dissected a wide lumpectomy specimen around the needle. The specimen was removed intact with what appeared to be good margins around the needle. It was removed from within the breast and marked with localizing sutures. This was then submitted for specimen mammography, which revealed a clip present within the lesion. Electrocautery was used to obtain hemostasis. The wound was irrigated. It was closed in layers with 3-0 and 4-0 Monocryl suture and Dermabond was placed externally. There were no complications. Blood loss was negligible. The patient tolerated the procedure well and was taken to recovery room in stable condition. Job ID: [id number]
== END 2018-05-23 18:40 | disposition home or self-care (01) ==
LOC: SDC 07:28
PROVIDERS: ATTEND Specialist
PROC: 0HBU0ZZ Excision of Left Breast, Open Approach (ICD-10-PCS; principal; 2018-05-23)
PROC: 07B60ZX Excision of Left Axillary Lymphatic, Open Approach, Diagnostic (ICD-10-PCS; 2018-05-23)
DX: C50.812 Malignant neoplasm of overlapping sites of left female breast (principal); C77.3 Secondary and unspecified malignant neoplasm of axilla and upper limb lymph nodes; Z17.0 Estrogen receptor positive status [ER+]; I13.0 Hypertensive heart and chronic kidney disease with heart failure and stage 1 through stage 4 chronic kidney disease, or unspecified chronic kidney disease; N18.3 Chronic kidney disease, stage 3 (moderate); I50.22 Chronic systolic (congestive) heart failure; I48.91 Unspecified atrial fibrillation; E78.5 Hyperlipidemia, unspecified; B02.23 Postherpetic polyneuropathy; M19.90 Unspecified osteoarthritis, unspecified site; Z95.0 Presence of cardiac pacemaker; Z90.710 Acquired absence of both cervix and uterus; Z88.2 Allergy status to sulfonamides; Z88.6 Allergy status to analgesic agent; Z79.01 Long term (current) use of anticoagulants; Z79.899 Other long term (current) drug therapy
CPT/HCPCS: 19301; 38525; 38900; 76098; 78195; 85610; 85730; 88307; 88342; A9541; Q9968; 36415; J0131; J0670; J1885; J2001; J2405; J2704; J3010; J3490

== ENCOUNTER 2018-06-14 10:09 | Outpatient (CLI) | payer MEDICARE, OTHER ==
--- NOTE | 2018-06-14 12:05 | BD ---
BONE DENSITOMETRY USING DEXA: Date: 06/14/18 HISTORY: Postmenopausal screening for osteoporosis. FINDINGS: Lumbar Spine: BMD (g/cm2) L1 0.792 T-Score: -1.8 L2 0.798 T-Score: -2.1 L3 0.805 T-Score: -2.5 L4 0.967 T-Score: -0.9 L1-L4 0.849 T-Score: -1.8 Femoral Neck: 0.490 T-Score: -3.2 Total Femur: 0.817 T-Score: -1.0 IMPRESSION: Osteoporosis. POS: OFF
== END 2018-06-14 10:10 | disposition home or self-care (01) ==
LOC: BICMAMMO 10:09
PROVIDERS: ATTEND Internal Medicine Hematology & Oncology
DX: Z13.820 Encounter for screening for osteoporosis (principal); Z79.890 Hormone replacement therapy; M81.0 Age-related osteoporosis without current pathological fracture
CPT/HCPCS: 77080

== ENCOUNTER 2018-08-21 16:59 | Observation (INO) | payer MEDICARE, OTHER ==
[2018-08-21 17:31] LABS: #Basophils 0.1 thou/uL (0.0-0.2); #Eosinphils 0.2 thou/uL (0.0-0.7); #Lymphocytes 2.5 thou/uL (1.20-3.40); #Monocytes 0.9 thou/uL (0.11-0.59); #Neutrophils 4.2 thou/uL (1.40-6.50); %Basophils 1.4 % (0.0-1.0); %Eosinophils 3.1 % (0.0-10.0); %Lymphocytes 31.3 % (21.0-51.0); %Monocytes 11.2 % (0.0-10.0); Hemoglobin 12.3 g/dL (12.0-16.0); Mean Corpuscular HGB CONC 31.7 g/dL (32.0-36.0); Mean Corpuscular Hemoglobin 31.8 pg (27.0-31.0); Mean Platelet Volume 8.3 fL (7.4-10.4); Platelet Count 250 thou/uL (130-400); RBC Distribution Width 13.1 % (11.5-14.5); Red Blood Cell (RBC) Count 3.89 mill/uL (4.20-5.40); White Blood Cell (WBC) Count 7.8 thou/uL (4.8-10.8)
--- NOTE | 2018-08-21 17:45 | RAD ---
Portable frontal chest radiograph: 08/21/2018 COMPARISON: 09/25/2017 HISTORY: Chest pressure and shortness of breath FINDINGS: Stable transvenous pacing device, midline sternotomy wires, and mechanical cardiac valve. N o pneumothorax, pleural fluid, focal consolidation, or alveolar edema. Stable prominence of the cardiac silhouette. IMPRESSION: Stable appearance of the chest.
[2018-08-21 17:56] LABS: ALT (SGPT) 9 U/L (8-55); AST (SGOT) 16 U/L (5-34); Albumin 3.9 g/dL (3.4-4.8); Alkaline Phosphatase 73 U/L (40-150); Anion Gap 11 mmol/L (10-20); BUN (Urea Nitrogen) 31 mg/dL (9.8-20.1); Bilirubin, Total 1.5 mg/dL (0.2-1.2); CK (CPK) 43 U/L (29-168); Calc. Creatinine Clearance 0 mL/min (70-130); Calcium 9.4 mg/dL (7.8-10.44); Carbon Dioxide 33 mmol/L (23-31); Chloride 100 mmol/L (98-107); Estimated GFR-MDRD 42; Globulin 3.5 g/dL (2.4-3.5); Glucose 118 mg/dL (83-110); Lipase 38 U/L (8-78); Potassium 3.8 mmol/L (3.5-5.1); Protein, Total 7.4 g/dL (6.0-8.3); Sodium 140 mmol/L (136-145)
[2018-08-21] MEDS ORDERED: Furosemide 40 MG/4 ML VIAL ONE (18:24)
[2018-08-21] MEDS ORDERED: Nitroglycerin 2% Ointment 1 INCH/1 GM Packet ONE (18:24)
[2018-08-21 18:39] LABS: INR-International Normal Ratio 2.4; PTT 38.7 SEC (22.9-36.1); Prothrombin Time 26.3 SEC (12.0-14.7)
[2018-08-21 19:56] LABS: Troponin I 0.033 ng/mL (< 0.028)
[2018-08-22 00:31] LABS: Troponin I 0.037 ng/mL (< 0.028)
[2018-08-22 01:15] VITALS: BMI 39.9
[2018-08-22] MEDS ORDERED: Acetaminophen 325 MG TAB PO PRN (01:45)
[2018-08-22] MEDS: Potassium Chloride 10 MEQ TAB PO SCH (08:28)
[2018-08-22] MEDS: Flecainide 50 MG TAB PO SCH ×2 (08:28→19:25)
[2018-08-22] MEDS: Carvedilol 25 MG TAB PO SCH ×2 (08:28→17:50)
[2018-08-22] MEDS: Furosemide 40 MG TAB PO SCH (08:30)
[2018-08-22] MEDS ORDERED: Polyethylene Glycol 3350 17 GM Packet PO PRN (12:00)
[2018-08-22] MEDS ORDERED: Ondansetron PF 4 MG/2 ML Vial IVP PRN (12:00)
[2018-08-22] MEDS ORDERED: Ondansetron ODT 4 MG TAB PO PRN (12:00)
[2018-08-22] MEDS ORDERED: hydrALAZINE 20 MG/ML VIAL SLOW IVP PRN (12:00)
[2018-08-22] MEDS ORDERED: cloNIDine 0.1 MG TAB PO PRN (12:00)
[2018-08-22] MEDS: Furosemide 40 MG/4 ML VIAL SLOW IVP SCH (13:22)
[2018-08-22] MEDS: Acetaminophen 500 MG TAB PO PRN ×2 (13:24→21:25)
[2018-08-22] MEDS ORDERED: Warfarin Sodium 5 MG TAB PO SCH (17:00)
[2018-08-22] MEDS ORDERED: Ferrous Sulfate 325 MG TAB PO SCH (21:00)
[2018-08-22] MEDS ORDERED: VITAMIN D3 PO SCH (21:00)
[2018-08-22] MEDS ORDERED: CALCIUM CARBONATE PO SCH (21:00)
[2018-08-22] MEDS ORDERED: Atorvastatin Calcium 10 MG TAB PO SCH (21:00)
[2018-08-22] MEDS ORDERED: Famotidine 20 MG TAB PO SCH (21:00)
[2018-08-23] MEDS: Furosemide 40 MG/4 ML VIAL SLOW IVP SCH (05:56)
[2018-08-23 06:20] LABS: INR-International Normal Ratio 2.4; Prothrombin Time 26.5 SEC (12.0-14.7)
[2018-08-23 06:26] LABS: Band 3 % (5-11); Hemoglobin 11.2 g/dL (12.0-16.0); Lymphocytes 33 % (21-51); MDiff Complete? YES; Mean Corpuscular HGB CONC 32.3 g/dL (32.0-36.0); Mean Corpuscular Hemoglobin 32.1 pg (27.0-31.0); Mean Corpuscular Volume 99.4 fL (78.0-98.0); Mean Platelet Volume 8.9 fL (7.4-10.4); Monocytes 14 % (0-10); Neutrophil 49 % (42-75); Platelet Count 218 thou/uL (130-400); RBC Distribution Width 13.4 % (11.5-14.5); Reactive Lymphocytes 1 % (0-10); Red Blood Cell (RBC) Count 3.47 mill/uL (4.20-5.40); White Blood Cell (WBC) Count 8.2 thou/uL (4.8-10.8)
[2018-08-23 06:48] LABS: Anion Gap 11 mmol/L (10-20); BUN (Urea Nitrogen) 37 mg/dL (9.8-20.1); Calc. Creatinine Clearance 44 mL/min (70-130); Calcium 8.8 mg/dL (7.8-10.44); Carbon Dioxide 35 mmol/L (23-31); Chloride 99 mmol/L (98-107); Estimated GFR-MDRD 39; Glucose 98 mg/dL (83-110); Magnesium 2.3 mg/dL (1.6-2.6); Potassium 3.6 mmol/L (3.5-5.1); Sodium 141 mmol/L (136-145)
[2018-08-23 07:08] VITALS: TEMP 97.8
--- NOTE | 2018-08-23 07:39 | HP ---
PRIMARY CARE PROVIDER: Moshe Lerner MD CHIEF COMPLAINT: Chest pain and shortness of breath. HISTORY OF PRESENT ILLNESS: This is an 87-year-old female, who presents to [facility] complaining of approximately 24 to 48-hour history of left upper chest wall pressure in addition to increasing shortness of breath over the last 2 to 3 days. The patient's history is significant for diastolic heart failure as well as atrial fibrillation and bioprosthetic aortic valve replacement on chronic anticoagulation with Coumadin. The patient states she has been compliant with her medication regimen and takes Lasix 40 mg daily. The patient noticed mild swelling of her ankles, but no orthopnea. The patient denies any fever, chills, nausea, vomiting, or diarrhea. The patient denies any exposure history or recent travel. The patient denied any unilateral weakness. The patient also reported increased palpitations over the last 24 hours and states this is usually her atrial fibrillation. The patient states that she is slated to start a chemotherapy regimen due to a diagnosis of breast cancer, which was diagnosed in May of 2018. The patient has been on hormonal suppression therapy and will start the infusion treatments on an outpatient basis on 08/23/2018. In the emergency room, the patient underwent general evaluation including chest imaging showing minimal pulmonary edema. EKG showed a paced rhythm and screening metabolic survey showed mild elevation to troponin I, which is chronic. The patient received IV Lasix 40 mg x1 in the emergency room and transdermal nitroglycerin. The patient was symptomatically improved with this intervention and is currently stable. PAST MEDICAL HISTORY: 1. Diastolic congestive heart failure with a preserved ejection fraction 50% to 55%. 2. Chronic atrial fibrillation with chronic anticoagulation with Coumadin. 3. Bioprosthetic aortic valve replacement on chronic anticoagulation with Coumadin. 4. Coronary artery disease, chronic and stable. 5. Chronic elevated troponin I secondarily to demand ischemia. 6. Hypertension. 7. Chronic kidney disease stage 3. 8. Invasive ductal breast carcinoma, grade 1, status post lumpectomy. PAST SURGICAL HISTORY: 1. Status post left shoulder repair. 2. Status post hemorrhoidectomy. 3. Status post bioprosthetic aortic valve replacement. 4. Status post pacemaker placement. 5. Status post hysterectomy. 6. Status post bilateral lens implants. 7. Status post breast lumpectomy with grade 1 invasive ductal carcinoma. CURRENT MEDICATIONS: 1. Calcium carbonate 1 capsule p.o. b.i.d. 2. Ferrous sulfate 325 mg p.o. at bedtime. 3. Flecainide 50 mg p.o. b.i.d. 4. Tylenol 1000 mg p.o. daily p.r.n. 5. MiraLAX 4 g p.o. daily. 6. Potassium chloride 10 mEq p.o. daily. 7. vitamin 1 tablet p.o. daily. 8. Simvastatin 20 mg p.o. q.48 hours. 9. Coumadin 5 mg p.o. daily except Fridays. 10. Coreg 12.5 mg p.o. b.i.d. ALLERGIES: TO CELEBREX AND SULFA. FAMILY HISTORY: Father of complications of congestive heart failure. Mother with history of coronary artery disease and myocardial infarction. SOCIAL HISTORY: The patient resides in [place], [place]. Accompanied by her two daughters. No current alcohol, tobacco, or illicit drug use. Medical power of research attorney is Stephenie Israel, the patient's daughter. Ambulatory with the use of a rolling walker. REVIEW OF SYSTEMS: CONSTITUTIONAL: Negative for weight loss or gain, ability to conduct usual activities. SKIN: Negative for rash, itching. EYES: Negative for double vision, pain. ENT/MOUTH: Negative for nose bleeding, neck stiffness, pain, tenderness. CARDIOVASCULAR: Negative for palpitations, dyspnea on exertion, orthopnea. RESPIRATORY: Negative for shortness of breath, wheezing, cough, hemoptysis, fever or night sweats. GASTROINTESTINAL: Negative for poor appetite, abdominal pain, heartburn, nausea, vomiting, constipation, or diarrhea. GENITOURINARY: Negative for urgency, frequency, dysuria, nocturia. MUSCULOSKELETAL: Negative for pain, swelling. NEUROLOGIC/PSYCHIATRIC: Negative for anxiety, depression. ALLERGY/IMMUNOLOGIC: Negative for skin rash, bleeding tendency. Otherwise, negative except as stated per HPI. PHYSICAL EXAMINATION: VITAL SIGNS: On admission; blood pressure 137/62, pulse 62, respiratory rate 15, temperature 97.8 degrees Fahrenheit, and O2 saturation 94% on room air. GENERAL APPEARANCE: This is an 87-year-old female, alert and oriented x3, pleasant, responsive, smiling, in no acute distress. HEENT: Pupils are equal, round, and reactive to light and accommodation. Extraocular muscles are intact. No scleral icterus. No conjunctival injection. Nares are patent. Op is clear. Teeth in good repair. NECK: Supple. No cervical adenopathy. No thyromegaly. No carotid bruits. No JVD appreciated. Cervical spine with full active and passive range of motion. No meningeal signs noted. CHEST: Lungs are clear to auscultation bilaterally. CARDIOVASCULAR: S1 and S2 with a 2 to 3/6 systolic ejection murmur in the right and left upper sternal border. ABDOMEN: Rounded, soft, nontender, and nondistended. Bowel sounds are positive in all 4 quadrants. There is no hepatosplenomegaly. No abdominal bruits. No rebound or guarding appreciated. EXTREMITIES: Warm and dry with fair turgor. No clubbing, cyanosis, or asymmetric edema appreciated. Pulses palpable distally at the dorsalis pedis, posterior tibial, and popliteal arteries bilaterally. Capillary refill less than 2 seconds. NEUROLOGIC: Cranial nerves 2 through 12 are grossly intact. No focal or lateralizing signs appreciated. PERTINENT LAB AND X-RAY FINDINGS: Sodium 140, potassium 3.8, chloride 100, CO2 of 33, BUN 31, creatinine 1.21, estimated GFR 42, glucose 118, calcium 9.4, and total bilirubin 1.5. LFTs within normal limits. Troponin I ranged between 0.033 to 0.037. BNP 829, previously noted 698 on 09/25/2017. CBC showed a white blood cell count of 7.8, hemoglobin 12.3, hematocrit 39, MCV 100, and platelet count 250 with normal differential. PT 26.3, INR 2.4, and PTT 38.7. Portable chest x-ray dated 08/21/2018, showed no acute cardiopulmonary process. EKG dated. EKG dated 08/21/2018, by my interpretation shows electronically ventricular paced rhythm in the 80s. ASSESSMENT AND PLAN: 1. Acute on chronic diastolic congestive heart failure exacerbation. The patient will be observed on the telemetry unit. We will continue Lasix 40 mg IV b.i.d. Serial I's and O's and daily weights. Repeat 2D transthoracic echocardiogram for accurate ejection fraction. 2. Dyspnea secondarily to acute on chronic diastolic congestive heart failure exacerbation, stable. Suspect secondary to mild volume overload. No current oxygen requirement or hypoxia. 3. Chronic kidney disease stage 3. Stable currently. Avoid nephrotoxic agents and limit contrast exposure. Serial creatinine monitoring. 4. Demand ischemia secondarily to acute on chronic diastolic congestive heart failure exacerbation. Stable currently. No current evidence to suggest acute coronary syndrome. 5. Chronic anticoagulation. Continue Coumadin 5 mg daily. Repeat PT/INR in the a.m. Currently, INR 2.4 and therapeutic. 6. Bioprosthetic aortic valve replacement. Stable currently. Continue Coumadin 5 mg daily. 2D transthoracic echocardiogram pending. 7. Prophylaxis. Sequential compression devices while in bed. Pepcid 20 mg p.o. b.i.d. 8. Code status is full. Surrogate medical decision maker is the patient's daughter. Job ID: [id number]
[2018-08-23 08:28] LABS: PTT 48.2 SEC (22.9-36.1)
[2018-08-23] MEDS: Carvedilol 25 MG TAB PO SCH (08:52)
[2018-08-23] MEDS: Potassium Chloride 10 MEQ TAB PO SCH (08:52)
[2018-08-23] MEDS: Furosemide 40 MG TAB PO SCH (08:52)
[2018-08-23] MEDS: Flecainide 50 MG TAB PO SCH (08:52)
[2018-08-23] MEDS ORDERED: Calcium Carbonate + Vit D 1 TAB PO SCH (09:00)
[2018-08-23] MEDS ORDERED: Prenatal Vitamin 1 TAB PO SCH (09:00)
[2018-08-23 11:38] VITALS: BP 138/65
--- NOTE | 2018-08-24 08:43 | DIS ---
DATE OF ADMISSION: 08/21/2018 DATE OF DISCHARGE: 08/23/2018 DISCHARGE DIAGNOSES: 1. Acute on chronic diastolic congestive heart failure with ejection fraction of 50% to 55%. 2. Dyspnea secondary to acute on chronic diastolic congestive heart failure, resolved. 3. Chronic kidney disease, stage 3, stable. 4. Demand ischemia secondary to diastolic congestive heart failure, stable. 5. Chronic anticoagulation with Coumadin. 6. Status post bioprosthetic aortic valve replacement on chronic anticoagulation with Coumadin. CONSULTATIONS: None. PERTINENT LABORATORY AND X-RAY FINDINGS: Creatinine ranged between 1.21 to 1.30. Estimated GFR ranged between 39 to 42. Troponin I ranged between 0.033 to 0.037. BNP 829, previously noted 698 on 09/25/2017. TSH 3.43. PT is 26.5, INR 2.4 on 08/23/2018. Portable chest x-ray dated 08/21/2017 showed no acute infiltrate. HOSPITAL COURSE: The patient was observed on the telemetry unit after initially presenting with increased shortness of breath, chest pain in the context of known chronic diastolic congestive heart failure. The patient was treated for mild exacerbation of congestive heart failure with IV Lasix 40 mg b.i.d. The patient clinically improved with supportive management, diuretic therapy, and general observation. 2D transthoracic echocardiogram was performed with final interpretation pending at the time of this dictation. The patient overall remained clinically stable throughout the hospital course with telemetry monitoring showing a paced rhythm in the 80s. I have examined the patient at the time of discharge and discussed followup instructions. The patient verbalized understanding and agreement and ready for discharge on 08/23/2018. DISCHARGE MEDICATIONS: 1. Calcium carbonate with vitamin D3 one capsule p.o. b.i.d. 2. Ferrous sulfate 325 mg p.o. at bedtime. 3. Flecainide 50 mg p.o. b.i.d. 4. Lasix 40 mg p.o. daily. 5. MiraLAX 4 g p.o. daily p.r.n. 6. Potassium chloride 10 mEq p.o. daily. 7. vitamin 1 tablet p.o. daily. 8. Simvastatin 20 mg p.o. q.48 hours. 9. Coumadin 5 mg p.o. daily except Fridays. 10. Coreg 12.5 mg p.o. b.i.d. FOLLOWUP: The patient may follow up with her primary care provider, Dr. Moshe Lerner within 7 days of discharge. The patient will follow up with Dr. Lashae Lucero with [facility] on 08/29/2018 at 12:00 p.m. The patient will follow up with the [facility] for PT/INR monitoring for Coumadin. CONDITION ON DISCHARGE: Fair. ACTIVITY: Ad-sunita. DIET: Heart healthy. CODE STATUS: Full. DISPOSITION: Home with Home Health Services with [facility], 08/23/2018. Job ID: [id number]
--- NOTE | 2018-08-26 10:30 | EKG ---
Test Reason : CP Blood Pressure : / mmHG Vent. Rate : 088 BPM Atrial Rate : 088 BPM P-R Int : 000 ms QRS Dur : 188 ms QT Int : 460 ms P-R-T Axes : 000 -72 107 degrees QTc Int : 556 ms Electronic ventricular pacemaker Confirmed by HERMELINDA GILL ([id number]), rewrite editor JOSE GUADALUPE LOYA ([id number]) on 08/26/2018 10:30:55 AM Referred By: BRIDGET Confirmed By:HERMELINDA GILL
== END 2018-08-23 13:58 | disposition home health service (06) ==
LOC: ERS 16:59 → ERHOLD 18:30 → 2NO 08-22 00:59
PROVIDERS: ADMIT Emergency Medicine; ATTEND Emergency Medicine
DX: I13.0 Hypertensive heart and chronic kidney disease with heart failure and stage 1 through stage 4 chronic kidney disease, or unspecified chronic kidney disease (principal); N18.3 Chronic kidney disease, stage 3 (moderate); I50.33 Acute on chronic diastolic (congestive) heart failure; I25.10 Atherosclerotic heart disease of native coronary artery without angina pectoris; I24.8 Other forms of acute ischemic heart disease; Z85.3 Personal history of malignant neoplasm of breast; Z79.01 Long term (current) use of anticoagulants; Z79.899 Other long term (current) drug therapy; Z88.2 Allergy status to sulfonamides; Z88.6 Allergy status to analgesic agent; Z95.0 Presence of cardiac pacemaker; Z95.2 Presence of prosthetic heart valve; Z98.890 Other specified postprocedural states
CPT/HCPCS: 71045; 80048; 80053; 82550; 82553; 83690; 83735; 83880; 84443; 84484 ×2; 85007; 85025; 85027; 85610 ×2; 85730 ×2; 93005; 93306; 96374; 96376 ×2; 99285; G0378 ×2; 36415; J1940

== ENCOUNTER 2018-11-09 22:41 | Inpatient (IN) | payer MEDICARE, OTHER ==
--- NOTE | 2018-11-09 23:10 | RAD ---
FRONTAL RADIOGRAPH CHEST: 11/09/18 COMPARISON: 08/21/18 HISTORY: Pain, dyspnea. FINDINGS: There is stable prominence of the cardiac silhouette. Stable midline sternotomy wires, dual lead arias svenous pacing device, and mechanical aortic valve. There is a nonspecific stable sclerotic focus wit hin the proximal right humerus, unchanged when compared to studies dating back to 09/02/16. Postsurgic al anchors overlie the left humeral head. IMPRESSION: Stable appearance of the chest - no focal consolidation or alveolar edema. POS: OFF
[2018-11-09 23:13] LABS: #Eosinphils 0.1 thou/uL (0.0-0.7); #Lymphocytes 0.7 thou/uL (1.20-3.40); #Monocytes 1.1 thou/uL (0.11-0.59); #Neutrophils 7.3 thou/uL (1.40-6.50); %Basophils 0.4 % (0.0-1.0); %Eosinophils 1.5 % (0.0-10.0); %Lymphocytes 7.6 % (21.0-51.0); %Monocytes 11.9 % (0.0-10.0); %Neutrophils 78.7 % (42.0-75.0); Mean Corpuscular HGB CONC 33.3 g/dL (32.0-36.0); Mean Corpuscular Hemoglobin 32.8 pg (27.0-31.0); Mean Corpuscular Volume 98.5 fL (78.0-98.0); Mean Platelet Volume 8.1 fL (7.4-10.4); Platelet Count 252 thou/uL (130-400); RBC Distribution Width 13.1 % (11.5-14.5); Red Blood Cell (RBC) Count 3.94 mill/uL (4.20-5.40); White Blood Cell (WBC) Count 9.3 thou/uL (4.8-10.8)
[2018-11-09] MEDS ORDERED: Acetaminophen 500 MG TAB ONE (23:21)
[2018-11-09] MEDS ORDERED: cefTRIAXone\\ROCEPHIN 1 GM VIAL ONE (23:21)
[2018-11-09 23:38] LABS: ALT (SGPT) 9 U/L (8-55); AST (SGOT) 17 U/L (5-34); Alkaline Phosphatase 75 U/L (40-150); Anion Gap 15 mmol/L (10-20); BUN (Urea Nitrogen) 33 mg/dL (9.8-20.1); Bilirubin, Total 2.5 mg/dL (0.2-1.2); CK (CPK) 51 U/L (29-168); Calc. Creatinine Clearance 0 mL/min (70-130); Calcium 9.2 mg/dL (7.8-10.44); Carbon Dioxide 29 mmol/L (23-31); Chloride 99 mmol/L (98-107); Estimated GFR-MDRD 45; Globulin 3.6 g/dL (2.4-3.5); Glucose 160 mg/dL (83-110); Potassium 4.2 mmol/L (3.5-5.1); Protein, Total 7.6 g/dL (6.0-8.3); Sodium 139 mmol/L (136-145)
[2018-11-09 23:59] LABS: CKMB 0.6 ng/mL (0-6.6)
[2018-11-10] MEDS ORDERED: Azithromycin 500 MG VIAL ONE (00:01)
[2018-11-10 00:08] LABS: Bilirubin Negative (Negative); Blood, Urine Negative (Negative); Clarity Turbid (Clear); Glucose, Urine (Dipstick) Normal (Negative); Leukocyte Negative Leu/uL (Negative); Nitrite Negative (Negative); Protein, Urine (Dipstick) 30 mg/dL (Neg-Trace); RBC/HPF 0-3 HPF (0-3); Squamous Epithelial None Seen HPF (0-3); Urobilinogen 3 mg/dL (Less than 2); WBC/HPF 0-3 HPF (0-3)
[2018-11-10 00:09] LABS: Bacteria/HPF 1+ HPF (None Seen)
[2018-11-10] MEDS ORDERED: Furosemide 40 MG/4 ML VIAL ONE (00:57)
[2018-11-10 02:00] VITALS: BMI 40.7
[2018-11-10] MEDS ORDERED: Ondansetron ODT 4 MG TAB SL PRN (02:05)
[2018-11-10] MEDS ORDERED: Ondansetron PF 4 MG/2 ML Vial IVP PRN (02:05)
[2018-11-10 02:53] LABS: Troponin I 0.195 ng/mL (< 0.028)
[2018-11-10] MEDS ORDERED: Acetaminophen 325 MG TAB PO PRN (03:35)
--- NOTE | 2018-11-10 04:22 | HP ---
CHIEF COMPLAINT: Shortness of breath. HISTORY OF PRESENT ILLNESS: This patient is an 87-year-old female with a history of congestive heart failure with diastolic dysfunction and systolic dysfunction with an EF of 45% to 50% on echocardiogram from 08/23 of this year. The patient also has a bioprosthetic aortic valve, on chronic anticoagulation with Coumadin for a history of atrial fibrillation. She also has a pacemaker in place, chronic kidney disease. The patient reports that on 11/09/2018, she was getting her teeth clean. She took prophylactic antibiotics which were four 500 mg pills, although she is not sure what they are and subsequently, did receive her teeth cleaning. She had some chills following this, but she reported that it has happened in the past when she has taken prophylactic antibiotics and thought it was a reaction to the medications. She also experienced some shortness of breath and has noted some recent weight gain as well. She reports that she has not had significant urine output since on the last 24-48 hours, she has no cough or a chest pressure sensation in the lower anterior chest, epigastric area. She reports associated rhinorrhea and some dizziness. REVIEW OF SYSTEMS: She reports some peripheral edema. Otherwise, all systems reviewed, all pertinent positives and negatives noted in the history of present illness. PAST MEDICAL HISTORY: Notable for the above-mentioned congestive heart failure with diastolic and systolic dysfunction with an EF of 45% to 50%; atrial fibrillation, on anticoagulation with Coumadin; bioprosthetic aortic valve, coronary artery disease, chronically elevated troponin, hypertension, chronic kidney disease stage 3; history of invasive ductal breast carcinoma grade 1, status post lumpectomy. PAST SURGICAL HISTORY: Left shoulder repair, hemorrhoidectomy, bioprosthetic aortic valve replacement, pacemaker placement, hysterectomy, bilateral lens implants, breast lumpectomy. FAMILY HISTORY: Father of congestive heart failure complications. Mother had coronary artery disease, prior ME. SOCIAL HISTORY: No alcohol, drugs, or tobacco. She is a full code and her daughter is her surrogate decision maker and power of county attorney. ALLERGIES: SULFA, CELECOXIB. HOME MEDICATIONS: Medication list is still being addressed. It appears she is on: 1. Warfarin 5 mg p.o. daily. 2. Simvastatin 20 mg p.o. every other day. 3. Multivitamin p.o. daily. 4. Lasix 40 mg daily. 5. Potassium 10 mEq daily. 6. Flecainide 50 mg b.i.d. 7. Ferrous sulfate 325 at bedtime. 8. Coreg 12.5 b.i.d. 9. Calcium with vitamin D one p.o. b.i.d. 10. MiraLAX p.r.n. PHYSICAL EXAMINATION: VITAL SIGNS: Temperature is 97.9, pulse 63, respirations 18, O2 saturation 97% on 2 L nasal cannula, BP 112/57. GENERAL APPEARANCE: Age-appropriate female. She is in no distress. She is awake and alert. She is a bit tachypneic. HEENT: PERRL. She has no OP lesions. NECK: Supple and symmetric. There is no JVD noted. No thyromegaly. HEART: Regular with 1-2/6 systolic murmur heard primarily at the left sternal border. LUNGS: Notable for some bibasilar rales, slightly worse on the right than the left with fair air exchange. ABDOMEN: Soft, nontender, and nondistended. Positive bowel sounds. No masses. No organomegaly. NEUROLOGICAL: The patient appears to be intact with spontaneous movement of extremities. No focal deficits. PSYCH: Normal affect and behavior. LABORATORY DATA: White count 9.2, hemoglobin 13.0, platelets 252. Sodium 139, potassium 4.2, chloride 99, CO2 is 29, BUN 33, creatinine 1.15, glucose 160, total bilirubin is 2.5, AST 17, ALT 19. Troponin 0.044, subsequent 0.195. BNP 645. Urinalysis essentially negative. Chest x-ray shows cardiomegaly with some mild vascular engorgement. IMPRESSION AND PLAN: 1. Dyspnea, appears to likely be due to some mild decompensated congestive heart failure. The patient has a history of elevated BNP and makes difficult to interpret her current levels. She has not been significantly lower than her current level since 2016. She received a dose of IV Lasix in the emergency department, has not responded significantly to that. We will attempt another IV dose with some Zaroxolyn and continue to try to diurese. Also possible she could have some underlying pneumonia. She is covered with Rocephin and azithromycin. We will need to have a followup chest x-ray. This is supported by the fact that she had 100.9 temperature in the emergency department as well. We will continue to treat for community-acquired pneumonia. 2. History of congestive heart failure with systolic and diastolic dysfunction with acute exacerbation. Again, trying to diurese. 3. Chronic kidney disease. Current renal function is on par with her usual numbers. 4. Elevated bilirubin. The patient has chronic elevation, she is only very minimally above her baseline. 5. Elevated troponin. Again, with 87-year-old female with compromise renal function, her numbers are likely appropriate to the scenario and not necessarily representing a demand ischemia. We will continue to trend and keep her on telemetry for now. 6. History of atrial fibrillation, on anticoagulation. We will check coags and consider pacemaker interrogation. 7. Low-grade fever without white count. The patient did have her teeth clean and concerning for the possibility that she may have had a bit of bacteremia related to that. She did take prophylactic antibiotics and will continue to cover with Rocephin and azithromycin. Job ID: [id number]
[2018-11-10 05:27] LABS: Anion Gap 11 mmol/L (10-20); BUN (Urea Nitrogen) 36 mg/dL (9.8-20.1); Calc. Creatinine Clearance 45 mL/min (70-130); Calcium 8.6 mg/dL (7.8-10.44); Carbon Dioxide 32 mmol/L (23-31); Chloride 101 mmol/L (98-107); Estimated GFR-MDRD 39; Glucose 140 mg/dL (83-110); Potassium 4.3 mmol/L (3.5-5.1); Sodium 140 mmol/L (136-145)
[2018-11-10] MEDS ORDERED: Metolazone 5 MG TAB PO SCH (05:30)
[2018-11-10 05:33] LABS: Troponin I 0.265 ng/mL (< 0.028)
[2018-11-10] MEDS: Furosemide 40 MG/4 ML VIAL SLOW IVP SCH ×2 (06:18→16:03)
[2018-11-10] MEDS ORDERED: Simvastatin 20 MG TAB PO SCH (07:00)
[2018-11-10] MEDS: Levalbuterol HCl 0.63 MG/3 ML NEB NEB SCH ×3 (07:26→21:45)
[2018-11-10] MEDS: Flecainide 50 MG TAB PO SCH ×2 (10:35→21:09)
--- NOTE | 2018-11-10 17:56 | PDOC.HOSPP ---
- Subjective Subjective: breathing better, no chest pain or palp cough mostly dry, no fever after hospitalization - Objective Vital Signs & Weight: Vital Signs (12 hours) Temp Pulse Resp BP Pulse Ox 11/10/18 16:00 96.3 F L 62 18 129/58 L 99 11/10/18 14:40 60 16 100 11/10/18 11:47 97.9 F 65 18 114/56 L 99 11/10/18 07:29 98.2 F 70 20 114/55 L 100 Weight Weight 197 lb 8 oz I&O: 11/09/18 11/10/18 11/11/18 06:59 06:59 06:59 Intake Total 230 Output Total 0 Balance 230 Result Diagrams: 11/09/18 23:06 11/10/18 04:55 ROS - Review of Systems All systems: All other ROS were reviewed and found negative. - Medication Medications: Active Medications Generic Name Dose Route Start Last Admin Trade Name Freq PRN Reason Stop Dose Admin Flecainide Acetate 50 mg 11/10/18 09:00 11/10/18 10:35 Tambocor PO 50 mg BID RICARDA Administration Furosemide 40 mg 11/10/18 06:00 11/10/18 16:03 Lasix SLOW IVP 40 mg 0600,1400 RICARDA Administration Doxycycline Hyclate 100 mg/ 100 mls @ 100 mls/hr 11/10/18 04:00 11/10/18 15: 59 Sodium Chloride IVPB 100 mls 0400,1600 RICARDA Administration Levalbuterol HCl 0.63 mg 11/10/18 07:00 11/10/18 14:40 Xopenex NEB 0.63 mg V1CI-IC RICARDA Administration - Exam NAD, awake alert Eye: PERRL, anicteric sclera ENT: no oropharyngeal lesions, dry oral mucosa Neck: supple, no JVD Heart: RRR, no rubs Respiratory: no wheezes, rhonchi Gastrointestinal: soft, non-distended, normal bowel sounds Extremities: no cyanosis, no edema Neurological: CN's grossly intact, no focal deficits Psychiatric: normal affect, A&O x 3 Hosp A/P (1) Acute exacerbation of CHF (congestive heart failure) Code(s): I50.9 - HEART FAILURE, UNSPECIFIED Status: Acute Qualifiers: Heart failure type: combined systolic and diastolic Qualified Code(s): I50.43 - Acute on chronic combined systolic (congestive) and diastolic ( congestive) heart failure (2) PNA (pneumonia) Code(s): J18.9 - PNEUMONIA, UNSPECIFIED ORGANISM Status: Suspected Qualifiers: Pneumonia type: due to unspecified organism (3) Atrial fibrillation Code(s): I48.91 - UNSPECIFIED ATRIAL FIBRILLATION Status: Chronic Plan: paroxysmal (4) CKD (chronic kidney disease), stage III Code(s): N18.3 - CHRONIC KIDNEY DISEASE, STAGE 3 (MODERATE) Status: Chronic (5) HTN (hypertension) Code(s): I10 - ESSENTIAL (PRIMARY) HYPERTENSION Status: Chronic Qualifiers: (6) Prosthetic replacement of heart valve Code(s): Z95.2 - PRESENCE OF PROSTHETIC HEART VALVE Status: Chronic Plan: aortic bioprosthetic valve - Plan continue gentle diuresis, on lasix and recieved one dose of metolazone nebs, ceftriaxone and doxy, will get cxr in 24hrs after diuresis for any underlying infiltrate cardiology consultation prior ef of 45% watch for renal function to mobilize as tolerated hemostable although sbp around 100
[2018-11-10] MEDS: Carvedilol 3.125 MG TAB PO SCH (18:34)
--- NOTE | 2018-11-10 20:36 | CON ---
DATE OF CONSULTATION: 11/10/2018 INDICATION FOR CONSULTATION: An 87-year-old female with a history of congestive heart failure, systolic and diastolic with a history of pacemaker insertion. She is status post aortic valve replacement with bioprosthetic valve, I believe, in 2009. She also has a history of some COPD. 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 She actually has been doing relatively well. She was instructed last when I saw her in the office to take her Lasix 40 mg alternating with 60 mg every other day. Unfortunately, she has not been doing that. She is only taking 40 mg a day. She went to the dentist on and evening she noted that she was short of breath, had some chest heaviness. Also, she was found to have mild elevation of the temperature with shortness of breath and apparently had some fever after she had been to the dentist for some dental cleaning. She presented to the emergency room and was admitted. She also was found to have 1+ bacteria in the urine as well as indeterminate troponin I of 0.04, increased up to 0.19, and then up to 0.265. Evaluation of the pacemaker indicated that she had 3 episodes of what appeared to be atrial fibrillation back on 11/01 and also on 11/08. On 11/08, she had a 2.5 hour event around 2:43 in the afternoon. She had another event around 6 o'clock in the evening about for 9-1/2 minutes. She had an earlier episode that lasted about 2 hours back on 11/01. Since that time, she has been relatively stable, did not see evidence of atrial fibrillation at this time. She has had no ventricular high rates associated with the atrial fibrillation. At this time, she is feeling better, but still has some shortness of breath. She has minimal edema. Her BNP was elevated at 646. She gained 2 pounds in one day prior to being admitted to the hospital. Her blood pressures at home have been anywhere between the high 90s to low one-teens to 120s and has been relatively stable otherwise. Her blood pressure also has been kind of elevated in the 160s at home, but at this time is slightly is on the low side, but otherwise she denies any complaints of chest discomfort except for having some pressure yesterday evening. PAST MEDICAL HISTORY: Significant for congestive heart failure, both systolic and diastolic. She has a history of pacemaker insertion. She has a history of COPD. She has a history of intermittent atrial fibrillation, chronic kidney disease, osteoporosis, and anemia. She had history of shingles in 2016. She has history of gout, hyperlipidemia, hypertension. She has had breast cancer with lumpectomy. She is status post pacemaker insertion. She has hemorrhoids. She has had left arm surgery. She has had a partial hysterectomy. MEDICATIONS: Prior to admission include: 1. Coumadin. 2. Lasix. 3. Zocor. 4. Ferrous sulfate. 5. Flecainide. 6. Calcium with vitamin D. 7. Coreg. 8. Potassium. 9. Arimidex. 10. Metolazone on p.r.n. basis. ALLERGIES: NONE. FAMILY HISTORY: Noncontributory. REVIEW OF SYSTEMS: HEENT: She denied any new HEENT complaints. PULMONARY: She had no pulmonary complaints except for shortness of breath. CARDIOVASCULAR: No palpitations. There was one episode of chest discomfort or heaviness. GASTROINTESTINAL: She had no complaints from a GI standpoint such as nausea, vomiting, diarrhea, hematuria, or dysuria. EXTREMITIES: She does have some mild lower extremity edema. NEUROLOGIC: No complaints of seizures or syncope. PHYSICAL EXAMINATION: GENERAL: Reveals a well-developed, well-nourished, elderly female, who is in no acute distress at this time. VITAL SIGNS: Blood pressure 114/56; heart rate is 65, which is pacing in A and V; she is afebrile; respiratory rate is 18; and O2 saturation 99%. HEENT: Shows head to be normocephalic and atraumatic. NECK: Carotid pulses are present without any bruits. CHEST: Clear to auscultation without rales, rhonchi, or wheezing. CARDIOVASCULAR: At this time reveals a regular rate and rhythm with only occasional ectopy. There are no gross murmurs, heaves, thrills, bruits, or rubs. ABDOMEN: Shows obesity with positive bowel sounds. There is no organomegaly or masses noted. No tenderness. EXTREMITIES: Show no clubbing or cyanosis. She has decreased pedal pulses, but they are present. She has mild lower extremity edema. NEUROLOGIC: She appears to be fully intact for someone of her age. LABORATORY DATA: Shows a WBC of 9.3, hemoglobin was 13, hematocrit 38.9 with platelet count 252,000. Sodium was 140, potassium 4.3, BUN was 36, creatinine 1.3, blood sugar was 140. Troponin I as noted above. BNP was 646. She did have 1+ bacteria in the urine. Chest x-ray was unremarkable. EKG shows 100% pacing with atrium and ventricle. IMPRESSION: 1. Mild congestive heart failure exacerbation with mild fluid overload. We will certainly try to continue to diurese the patient as long as her blood pressure remains stable. It is quite possible that she develop some mild bacteremia after going to the dentist and had dental cleanings and she did have a mild low-grade temperature and she did have antibiotics prior to going to the dentist, but she also says she has gained 2 pounds prior on last 2 days, which indicates just volume overload. I suggest she continue to watch her fluids and to take the Lasix as directed. I had suggest earlier that she take 1-1/2 tablets every other day in order to decrease her volume overload. If this does not successful, then we will need to add Zaroxolyn on a regular basis, but not on a daily basis. 2. History of aortic valve replacement. This appears to be stable at this time. I did not hear any AI or murmurs. 3. Mild decrease in left ventricular systolic function. Last ejection fraction showed 45% to 50%, but she has both diastolic and systolic heart failure. 4. Dyslipidemia. We will continue on her medications. 5. History of chronic obstructive pulmonary disease. This appears to be stable at this time. At this time, I believe she is relatively stable from a cardiac standpoint. We can try to obtain an echocardiogram to see if there has been any interval change since her last echocardiogram was performed in August 2018, which showed ejection fraction of 45% to 50% with diastolic dysfunction. She had both left and right atrial dilatation with mild mitral, aortic, and moderate tricuspid valve regurgitation. She also had [id number] aortic valve stenosis across the bioprosthetic valve, but this does not appear to be the issue at this time. We will continue to follow the patient with you, but from this time, I believe from a cardiac standpoint, she appears to be relatively stable, but would continue the antibiotics and I suspect this may have been a mild bacteremia after the teeth cleaning. Job ID: [id number]
[2018-11-10] MEDS ORDERED: Non-Formulary Item 1 EACH (Ferrous Sulfate [Ferrous Sulfate] 325 MG) PO SCH (21:00)
[2018-11-10] MEDS: Ferrous Sulfate 325 MG TAB PO SCH (21:09)
[2018-11-10] MEDS: Atorvastatin Calcium 10 MG TAB PO SCH (21:09)
[2018-11-11] MEDS: cefTRIAXone\\ROCEPHIN 1 GM in Sodium Chloride 0.9% 100 ML IVPB SCH (00:28)
[2018-11-11] MEDS: Furosemide 40 MG/4 ML VIAL SLOW IVP SCH ×2 (04:23→13:56)
[2018-11-11 05:28] LABS: #Basophils 0.1 thou/uL (0.0-0.2); #Eosinphils 0.1 thou/uL (0.0-0.7); #Lymphocytes 1.4 thou/uL (1.20-3.40); #Monocytes 1.2 thou/uL (0.11-0.59); #Neutrophils 7.4 thou/uL (1.40-6.50); %Basophils 0.5 % (0.0-1.0); %Eosinophils 1.4 % (0.0-10.0); %Lymphocytes 14.1 % (21.0-51.0); %Monocytes 11.3 % (0.0-10.0); %Neutrophils 72.8 % (42.0-75.0); Hemoglobin 11.4 g/dL (12.0-16.0); Mean Corpuscular HGB CONC 32.5 g/dL (32.0-36.0); Mean Corpuscular Hemoglobin 32.4 pg (27.0-31.0); Mean Corpuscular Volume 99.5 fL (78.0-98.0); Mean Platelet Volume 8.3 fL (7.4-10.4); Platelet Count 232 thou/uL (130-400); RBC Distribution Width 13.1 % (11.5-14.5); Red Blood Cell (RBC) Count 3.53 mill/uL (4.20-5.40); White Blood Cell (WBC) Count 10.2 thou/uL (4.8-10.8)
[2018-11-11 05:45] LABS: Anion Gap 13 mmol/L (10-20); BUN (Urea Nitrogen) 32 mg/dL (9.8-20.1); Calc. Creatinine Clearance 56 mL/min (70-130); Calcium 8.7 mg/dL (7.8-10.44); Carbon Dioxide 31 mmol/L (23-31); Chloride 99 mmol/L (98-107); Estimated GFR-MDRD 49; Glucose 133 mg/dL (83-110); Sodium 139 mmol/L (136-145)
[2018-11-11] MEDS: Levalbuterol HCl 0.63 MG/3 ML NEB NEB SCH ×3 (07:07→21:41)
[2018-11-11] MEDS: Carvedilol 3.125 MG TAB PO SCH ×2 (08:28→16:16)
[2018-11-11] MEDS: Flecainide 50 MG TAB PO SCH ×2 (08:28→21:32)
[2018-11-11] MEDS: Anastrozole 1 MG TAB PO SCH (08:28)
--- NOTE | 2018-11-11 10:18 | RAD ---
Exam: Chest one view HISTORY:Dyspnea. Congestive heart failure. Patient has been given diuretics. Eval for infiltrate Comparison: 11/09/2018 FINDINGS: Cardiac silhouette:Cardiomegaly. Atherosclerosis of the aortic knob. Prosthetic heart valve. Stable s ternotomy wires and left-sided transvenous pacemaker. Pulmonary vessels: Normal Costophrenic angles: Right costophrenic angle is clear. Persistent opacification of the left lung bas e which obscures the left hemidiaphragm and blunting left costophrenic angle. Pleural and parenchymal changes are suspected. LUNGS: Opacification left lung base as described above. Adequate aeration of the upper lungs. Pneumothorax: None Osseous abnormalities: Chronic changes involving the proximal left and right humerus. IMPRESSION: 1. Cardiomegaly. 2. Atherosclerosis. 3. Persistent pleural and parenchymal changes left lung base. Correlate for atelectasis, aspiration o r pneumonia.
--- NOTE | 2018-11-11 12:12 | PDOC.HOSPP ---
- Subjective Subjective: has dry cough, no expectoration no c/o chest pain or palpitation has exertional sob - Objective Vital Signs & Weight: Vital Signs (12 hours) Temp Pulse Resp BP Pulse Ox 11/11/18 11:44 98.5 F 63 17 135/62 100 11/11/18 07:22 98.5 F 77 20 139/61 96 11/11/18 07:09 97 11/11/18 07:07 69 16 97 11/11/18 04:00 98.2 F 60 20 135/63 98 Weight Weight 205 lb 1 oz I&O: 11/10/18 11/11/18 11/12/18 06:59 06:59 06:59 Intake Total 230 Output Total 0 500 Balance 230 -500 Result Diagrams: 11/11/18 05:05 11/11/18 05:05 ROS - Review of Systems All systems: All other ROS were reviewed and found negative. - Medication Medications: Active Medications Generic Name Dose Route Start Last Admin Trade Name Freq PRN Reason Stop Dose Admin Anastrozole 1 mg 11/11/18 09:00 11/11/18 08:28 Arimidex PO 1 mg DAILY RICARDA Administration Atorvastatin Calcium 10 mg 11/10/18 21:00 11/10/18 21:09 Lipitor PO 10 mg Q2DAYS RICARDA Administration Carvedilol 3.125 mg 11/10/18 17:00 11/11/18 08:28 Coreg PO 3.125 mg BID-WM RICARDA Administration Ferrous Sulfate 325 mg 11/10/18 21:00 11/10/18 21:09 Feosol PO 325 mg HS RICARDA Administration Flecainide Acetate 50 mg 11/10/18 09:00 11/11/18 08:28 Tambocor PO 50 mg BID RICARDA Administration Furosemide 40 mg 11/10/18 06:00 11/11/18 04:23 Lasix SLOW IVP 40 mg 0600,1400 RICARDA Administration Ceftriaxone Sodium 1 gm/ 100 mls @ 200 mls/hr 11/10/18 23:59 11/11/18 00:28 Sodium Chloride IVPB 100 mls 2359 RICARDA Administration Doxycycline Hyclate 100 mg/ 100 mls @ 100 mls/hr 11/10/18 04:00 11/11/18 04: 23 Sodium Chloride IVPB 100 mls 0400,1600 RICARDA Administration Levalbuterol HCl 0.63 mg 11/10/18 07:00 11/11/18 07:07 Xopenex NEB 0.63 mg [id number] RICARDA Administration - Exam NAD, awake alert Eye: PERRL, anicteric sclera ENT: no oropharyngeal lesions, dry oral mucosa Neck: supple, no JVD Heart: RRR, no gallops Respiratory: no wheezes, rhonchi Gastrointestinal: soft, non-tender, normal bowel sounds Extremities: no cyanosis, no edema Neurological: CN's grossly intact, no focal deficits Psychiatric: normal affect, A&O x 3 Hosp A/P (1) Acute exacerbation of CHF (congestive heart failure) Code(s): I50.9 - HEART FAILURE, UNSPECIFIED Status: Acute Qualifiers: Heart failure type: combined systolic and diastolic Qualified Code(s): I50.43 - Acute on chronic combined systolic (congestive) and diastolic ( congestive) heart failure (2) PNA (pneumonia) Code(s): J18.9 - PNEUMONIA, UNSPECIFIED ORGANISM Status: Suspected Qualifiers: Pneumonia type: due to unspecified organism (3) Atrial fibrillation Code(s): I48.91 - UNSPECIFIED ATRIAL FIBRILLATION Status: Chronic (4) CKD (chronic kidney disease), stage III Code(s): N18.3 - CHRONIC KIDNEY DISEASE, STAGE 3 (MODERATE) Status: Chronic (5) HTN (hypertension) Code(s): I10 - ESSENTIAL (PRIMARY) HYPERTENSION Status: Chronic Qualifiers: (6) Prosthetic replacement of heart valve Code(s): Z95.2 - PRESENCE OF PROSTHETIC HEART VALVE Status: Chronic - Plan hemostable cxr noted, left lower zone is not clear with cardiomegaly on lasix iv x 3 more doses and switch to oral start home dose coumadin on doxy and ceftriaxone, no fever after hospitalization, blood cs x2 -ve will dc antibiotics if CT chest shows no evidence of infiltrate d/w pt and 2 daughters at bedside PT eval and ambulate as tolerated renal function holding up has h/o urinary retention or feeling of it, adv to f/u with urology, will check residuals x2
--- NOTE | 2018-11-11 14:26 | CT ---
CT CHEST WITHOUT CONTRAST: HISTORY: Shortness of breath. Diuretics. Evaluate for infiltrate. COMPARISON: None. FINDINGS: Limited evaluation of the mediastinum due to lack of IV contrast. No mediastinal mass, lymphadenopat hy, or hematoma. There is calcification of the mitral annulus and aortic valve. There are scattered coronary artery calcifications. Heart size is enlarged. No significant pericardial fluid. Atherosclerosis of a nonaneurysmal aorta. The visualized upper solid organs are grossly unremarkable. Small bilateral effusions. Adjacent consolidation may represent atelectasis, pneumonia, or aspiratio n. Linear opacities involving the lingula, middle lobe, and bilateral lower lobes may represent areas of atelectasis or scar. No pneumothorax. Degenerative changes of the lumbar spine with endplate sclerosis and vacuum disc phenomenon. IMPRESSION: Bilateral pleural effusions with adjacent consolidation due to atelectasis, aspiration, or pneumonia. Additional linear opacities may represent subsegmental atelectasis in the lingula, middle lobe, and bilateral lower lobes. Transcribed Date/Time: 11/11/2018 2:46 PM
[2018-11-11] MEDS: Polyethylene Glycol 3350 17 GM Packet PO PRN (15:17)
[2018-11-11] MEDS: Warfarin Sodium 5 MG TAB PO SCH (16:16)
[2018-11-11 16:28] LABS: Hemoglobin 11.8 g/dL (12.0-16.0); Platelet Count 226 thou/uL (130-400)
[2018-11-11] MEDS: Ferrous Sulfate 325 MG TAB PO SCH (21:32)
[2018-11-12] MEDS ORDERED: Sodium Chloride 0.9% 10 ML ONE ×3 (00:29→06:52)
[2018-11-12] MEDS: cefTRIAXone\\ROCEPHIN 1 GM in Sodium Chloride 0.9% 100 ML IVPB SCH (00:40)
[2018-11-12 05:12] LABS: Anion Gap 12 mmol/L (10-20); BUN (Urea Nitrogen) 38 mg/dL (9.8-20.1); Calc. Creatinine Clearance 55 mL/min (70-130); Calcium 8.6 mg/dL (7.8-10.44); Carbon Dioxide 32 mmol/L (23-31); Chloride 99 mmol/L (98-107); Estimated GFR-MDRD 49; Glucose 105 mg/dL (83-110); Potassium 3.9 mmol/L (3.5-5.1); Sodium 139 mmol/L (136-145)
[2018-11-12] MEDS: Levalbuterol HCl 0.63 MG/3 ML NEB NEB SCH ×3 (07:04→22:03)
[2018-11-12] MEDS: Furosemide 40 MG/4 ML VIAL SLOW IVP SCH (07:06)
[2018-11-12 08:54] LABS: INR-International Normal Ratio 2.1; PTT 46.2 SEC (22.9-36.1); Prothrombin Time 23.4 SEC (12.0-14.7)
[2018-11-12] MEDS: Carvedilol 3.125 MG TAB PO SCH ×2 (08:58→16:07)
[2018-11-12] MEDS: Anastrozole 1 MG TAB PO SCH (08:58)
[2018-11-12] MEDS: Flecainide 50 MG TAB PO SCH ×2 (08:59→21:56)
[2018-11-12] MEDS: Cefdinir 300 MG CAP PO SCH ×2 (08:59→21:56)
[2018-11-12] MEDS ORDERED: Furosemide 40 MG/4 ML VIAL SLOW IVP SCH (09:00)
[2018-11-12] MEDS: Furosemide 20 MG TAB PO SCH ×2 (09:05→13:57)
[2018-11-12] MEDS: Polyethylene Glycol 3350 17 GM Packet PO PRN (09:06)
--- NOTE | 2018-11-12 11:11 | PDOC.HOSPP ---
- Subjective Subjective: no chest pain or sob no cough, feels better, is sitting in chair - Objective Vital Signs & Weight: Vital Signs (12 hours) Temp Pulse Resp BP Pulse Ox 11/12/18 07:19 98.5 F 73 17 127/58 L 95 11/12/18 07:04 90 12 11/12/18 04:00 97.8 F 47 L 19 112/56 L 95 11/12/18 00:00 97.8 F 59 L 17 124/54 L 96 Weight Weight 205 lb 1 oz I&O: 11/11/18 11/12/18 11/13/18 06:59 06:59 06:59 Intake Total 1455 Output Total 500 950 Balance -500 505 Result Diagrams: 11/11/18 16:21 11/12/18 04:28 ROS - Review of Systems All systems: All other ROS were reviewed and found negative. - Medication Medications: Active Medications Generic Name Dose Route Start Last Admin Trade Name Freq PRN Reason Stop Dose Admin Anastrozole 1 mg 11/11/18 09:00 11/12/18 08:58 Arimidex PO 1 mg DAILY RICARDA Administration Atorvastatin Calcium 10 mg 11/10/18 21:00 11/10/18 21:09 Lipitor PO 10 mg Q2DAYS RICARDA Administration Carvedilol 3.125 mg 11/10/18 17:00 11/12/18 08:58 Coreg PO 3.125 mg BID-WM RICARDA Administration Cefdinir 300 mg 11/12/18 09:00 11/12/18 08:59 Omnicef PO 300 mg BID RICARDA Administration Ferrous Sulfate 325 mg 11/10/18 21:00 11/11/18 21:32 Feosol PO 325 mg HS RICARDA Administration Flecainide Acetate 50 mg 11/10/18 09:00 11/12/18 08:59 Tambocor PO 50 mg BID RICARDA Administration Furosemide 40 mg 11/12/18 09:00 11/12/18 09:05 Lasix PO Not Given 0900,1400 RICARDA Levalbuterol HCl 0.63 mg 11/10/18 07:00 11/12/18 07:04 Xopenex NEB 0.63 mg [id number] RICARDA Administration Polyethylene Glycol 17 gm 11/10/18 10:51 11/12/18 09:06 Miralax PO 17 gm DAILY PRN Administration Constipation Warfarin Sodium 5 mg 11/11/18 17:00 11/11/18 16:16 Coumadin PO 5 mg 1700 RICARDA Administration - Exam NAD, awake alert Eye: PERRL, anicteric sclera ENT: normocephalic atraumatic, no oropharyngeal lesions Neck: supple, no JVD Heart: RRR, no murmur Respiratory: no wheezes, no rales Gastrointestinal: soft, non-tender, normal bowel sounds Extremities: no cyanosis, no edema Neurological: CN's grossly intact, no focal deficits Psychiatric: normal affect, A&O x 3 Hosp A/P (1) Acute exacerbation of CHF (congestive heart failure) Code(s): I50.9 - HEART FAILURE, UNSPECIFIED Status: Acute Qualifiers: Heart failure type: combined systolic and diastolic Qualified Code(s): I50.43 - Acute on chronic combined systolic (congestive) and diastolic ( congestive) heart failure Plan: resolving (2) PNA (pneumonia) Code(s): J18.9 - PNEUMONIA, UNSPECIFIED ORGANISM Status: Acute Qualifiers: Pneumonia type: due to unspecified organism Laterality: left Lung location: lower lobe of lung Qualified Code(s): J18.1 - Lobar pneumonia, unspecified organism (3) Atrial fibrillation Code(s): I48.91 - UNSPECIFIED ATRIAL FIBRILLATION Status: Chronic (4) CKD (chronic kidney disease), stage III Code(s): N18.3 - CHRONIC KIDNEY DISEASE, STAGE 3 (MODERATE) Status: Chronic (5) HTN (hypertension) Code(s): I10 - ESSENTIAL (PRIMARY) HYPERTENSION Status: Chronic Qualifiers: (6) Prosthetic replacement of heart valve Code(s): Z95.2 - PRESENCE OF PROSTHETIC HEART VALVE Status: Chronic - Plan hemostable change lasix to oral on omnicef to ambulate with PT, dc plan depends on PT eval continue coumadin, inr is almost therapeutic
[2018-11-12] MEDS: Warfarin Sodium 5 MG TAB PO SCH (16:07)
[2018-11-12] MEDS: Atorvastatin Calcium 10 MG TAB PO SCH (21:55)
[2018-11-12] MEDS: Ferrous Sulfate 325 MG TAB PO SCH (21:56)
[2018-11-13 04:53] LABS: INR-International Normal Ratio 2.2; PTT 40.2 SEC (22.9-36.1); Prothrombin Time 24.1 SEC (12.0-14.7)
[2018-11-13 05:10] LABS: Anion Gap 14 mmol/L (10-20); BUN (Urea Nitrogen) 36 mg/dL (9.8-20.1); Calc. Creatinine Clearance 57 mL/min (70-130); Calcium 9.1 mg/dL (7.8-10.44); Carbon Dioxide 33 mmol/L (23-31); Chloride 97 mmol/L (98-107); Estimated GFR-MDRD 50; Glucose 109 mg/dL (83-110); Potassium 3.5 mmol/L (3.5-5.1); Sodium 140 mmol/L (136-145)
[2018-11-13] MEDS: Cefdinir 300 MG CAP PO SCH (07:52)
[2018-11-13] MEDS: Anastrozole 1 MG TAB PO SCH (07:52)
[2018-11-13] MEDS: Carvedilol 3.125 MG TAB PO SCH (07:53)
[2018-11-13] MEDS: Furosemide 20 MG TAB PO SCH ×2 (07:53→13:23)
[2018-11-13] MEDS: Flecainide 50 MG TAB PO SCH (07:53)
[2018-11-13] MEDS: Levalbuterol HCl 0.63 MG/3 ML NEB NEB SCH (10:24)
[2018-11-13 10:43] LABS: INR-International Normal Ratio 2.1; Prothrombin Time 23.8 SEC (12.0-14.7)
--- NOTE | 2018-11-13 13:00 | PDOC.CTH ---
Cardiology Progress Note - Subjective Pt. seen and eval. No new overnight events. Still an occasional cough. - Objective Vital Signs Temp Pulse Resp BP Pulse Ox 11/13/18 08:00 99.5 F 64 17 138/64 94 L 11/13/18 03:44 98.0 F 62 20 141/66 H 96 11/13/18 02:21 94 L Weight 200 lb 9.93 oz 11/12/18 11/13/18 11/14/18 06:59 06:59 06:59 Intake Total 1455 720 Output Total 950 2000 Balance 505 -1280 - Physical Examination General/Neuro: alert & oriented x3 Neck: carotid US brisk, no JVD present Lungs: CTA, other: (mild left basilar fine rales.) Heart: RRR Abdomen: NT/ND, soft - Telemetry Telemetry Rhythm: AP/PRESS TENDER SMOKE SIGNAL - Labs Result Diagrams: 11/11/18 16:21 11/13/18 04:38 Troponin/CKMB CK-MB (CK-2) 0.6 ng/mL (0-6.6) 11/09/18 23:06 Troponin I 0.265 ng/mL (< 0.028) H 11/10/18 04:55 - Assessment/Plan 1. CHF: acute on chronic syst./diastolic/ stable on present meds. 2. s/p AVR: stable. 3. COPD/ PNA: continue antibiotics at home. 4. s/p pacemaker : stable function. Okay to d/c to home. F/U with me in 2-3 weeks.
[2018-11-13 13:31] VITALS: BP 127/68; TEMP 98.7
--- NOTE | 2018-11-13 17:35 | DIS ---
DATE OF ADMISSION: 11/10/2018 DATE OF DISCHARGE: 11/13/2018 DISCHARGE DISPOSITION: To home with Home Health. PRIMARY DISCHARGE DIAGNOSES: Acute on chronic congestive heart failure exacerbation with systolic and diastolic dysfunction, stage C; left lung pneumonia; chronic atrial fibrillation, rate controlled; chronic kidney disease, stage 3; hypertension; and bioprosthetic aortic valve. PROCEDURES DONE DURING HOSPITALIZATION: CT chest showed bilateral pleural effusion with atelectasis. There were additional linear opacities seen in the left middle lobe and lingula. White count of 9, H and H 13 and 38, platelet count 252. Discharge INR is 2.1. Discharge BUN and creatinine are 36 and 1.0, serum bicarb of 33. BNP 646. Blood cultures x2, no growth. Urine culture, no growth. DISCHARGE MEDICATIONS: 1. Anastrozole 1 mg p.o. daily. 2. Clonidine p.r.n. 3. Ferrous sulfate 325 mg p.o. q.h.s. 4. Flecainide 50 mg twice daily. 5. Lasix 40 mg daily. 6. MiraLAX 17 g daily. 7. Potassium chloride 10 mEq p.o. daily. 8. Simvastatin 20 mg p.o. every 2 days. 9. Coumadin 5 mg p.o. daily. 10. Albuterol inhaler q.6 hourly p.r.n. 11. Coreg 12.5 mg p.o. twice daily. 12. Omnicef 300 mg p.o. twice daily for 4 days. ALLERGIES: ALLERGIC TO SULFA AND CELECOXIB. INPATIENT CONSULT: Dr. Lucero for Cardiology. BRIEF COURSE DURING HOSPITALIZATION: The patient initially was brought to ER with complaints of shortness of breath. She also had complaints of chills on arrival and had a temperature of 100.9 degrees in the emergency room here. In view of this , the patient was gently diuresed and also placed on antibiotics for possible pneumonia. She had a CT chest done, which was not very clear about underlying pneumonia. Given the patient's initial fever and with complete resolution of cough and shortness of breath, the patient needs to continue Omnicef for another 4 days. She is placed back on her home dose of Lasix. She was evaluated by Dr. Lucero during her stay here. Prior to discharge, she is ambulating well and eating well. I have given complete updates to the patient's daughter, who is here at bedside at the time of discharge. Please note, I have seen and examined the patient on the day of discharge. Job ID: [id number] MTDD
== END 2018-11-13 14:20 | disposition home health service (06) | DRG 291 ==
LOC: ERS 22:41 → 2NO 11-10 00:05
PROVIDERS: ADMIT Internal Medicine; ATTEND Internal Medicine
DX: I13.0 Hypertensive heart and chronic kidney disease with heart failure and stage 1 through stage 4 chronic kidney disease, or unspecified chronic kidney disease (principal); I50.43 Acute on chronic combined systolic (congestive) and diastolic (congestive) heart failure; J18.1 Lobar pneumonia, unspecified organism; J44.0 Chronic obstructive pulmonary disease with (acute) lower respiratory infection; E78.5 Hyperlipidemia, unspecified; M10.9 Gout, unspecified; D63.1 Anemia in chronic kidney disease; M81.0 Age-related osteoporosis without current pathological fracture; I08.3 Combined rheumatic disorders of mitral, aortic and tricuspid valves; I48.0 Paroxysmal atrial fibrillation; N18.3 Chronic kidney disease, stage 3 (moderate); Z88.2 Allergy status to sulfonamides; Z85.3 Personal history of malignant neoplasm of breast; Z95.0 Presence of cardiac pacemaker; Z95.2 Presence of prosthetic heart valve; Z79.01 Long term (current) use of anticoagulants; Z88.8 Allergy status to other drugs, medicaments and biological substances
CPT/HCPCS: 36415; 51701; 71045; 71250; 80048; 80053; 81003; 81015; 82550; 82553; 83880; 84484; 85025; 85610; 85730; 87040; 87086; 93005; 93798; 94640; 96365; 96367; 96375; A4353; J0456; J0696; J1940; J3490; J7614

== ENCOUNTER 2019-02-27 12:04 | Outpatient (CLI) | payer MEDICARE, OTHER ==
--- NOTE | 2019-02-27 13:07 | RAD ---
Exam:2 views right knee HISTORY: Fall. Anterior right knee pain. COMPARISON: None FINDINGS: Small suprapatellar effusion. Severe degenerative change in the medial compartment and hunt llofemoral compartment. No definite fracture. Well-corticated loose body fragments noted in the popliteal fossa. Extensive atherosclerosis. IMPRESSION: Possible suprapatellar effusion. No obvious fracture. If there is concern, consider CT
== END 2019-02-27 12:05 | disposition home or self-care (01) ==
LOC: BICRAD 12:04
PROVIDERS: ATTEND Family Medicine
DX: M25.561 Pain in right knee (principal); W18.00XA Striking against unspecified object with subsequent fall, initial encounter

== ENCOUNTER 2019-04-25 14:31 | Outpatient (CLI) | payer MEDICARE, OTHER | END 2019-04-25 14:32 | disposition home or self-care (01) | LOC: ULT 14:31 | PROVIDERS: ATTEND Nurse Practitioner Family | DX: I50.30 Unspecified diastolic (congestive) heart failure (principal); I08.8 Other rheumatic multiple valve diseases; Z95.0 Presence of cardiac pacemaker | CPT/HCPCS: 36415; 80053; 83880; 85025; 85610; 93306 ==

== ENCOUNTER 2019-05-01 09:04 | Outpatient (CLI) | payer MEDICARE, OTHER ==
[2019-05-01 12:27] LABS: Hemoglobin 12.5 g/dL (12.0-16.0); Mean Corpuscular HGB CONC 31.5 g/dL (32.0-36.0); Mean Corpuscular Hemoglobin 32.8 pg (27.0-31.0); Mean Platelet Volume 8.7 fL (7.4-10.4); Platelet Count 230 thou/uL (130-400); Red Blood Cell (RBC) Count 3.81 mill/uL (4.20-5.40); White Blood Cell (WBC) Count 5.7 thou/uL (4.8-10.8)
[2019-05-01 12:34] LABS: Prothrombin Time 22.8 SEC (12.0-14.7)
[2019-05-01 13:00] LABS: Anion Gap 13 mmol/L (10-20); Calcium 9.1 mg/dL (7.8-10.44); Carbon Dioxide 35 mmol/L (23-31); Chloride 98 mmol/L (98-107); Potassium 4.2 mmol/L (3.5-5.1); Sodium 142 mmol/L (136-145)
[2019-05-01 13:08] LABS: Glucose 104 mg/dL (83-110)
[2019-05-01 13:12] LABS: Calc. Creatinine Clearance 0 mL/min (70-130); Estimated GFR-MDRD 24
[2019-05-01 13:13] LABS: BUN (Urea Nitrogen) 46 mg/dL (9.8-20.1)
== END 2019-05-01 09:05 | disposition home or self-care (01) ==
LOC: LABBT 09:04
PROVIDERS: ATTEND Internal Medicine Cardiovascular Disease
DX: Z01.812 Encounter for preprocedural laboratory examination (principal); I42.0 Dilated cardiomyopathy
CPT/HCPCS: 80048; 85027; 85610

== ENCOUNTER 2019-05-02 13:35 | Outpatient (CLI) | payer MEDICARE, OTHER ==
--- NOTE | 2019-05-02 14:54 | MMO ---
Bilateral MAMMO Bilat Diag [facility]. CLINICAL HISTORY: Patient is 88 years old and is seen for diagnostic exam. The patient has the following family history of breast cancer: niece, malignant (generic). The patient has a history of malignant (generic) in the left breast in April,. The patient has a history of left Ultrasound Guided Core Biopsy in April, - malignant, left Lumpectomy in 2018 - malignant and left Excisional Biopsy in 1985 - benign. VIEWS: The views performed were: bilateral craniocaudal with tomosynthesis; bilateral mediolateral with tomosynthesis; bilateral mediolateral oblique with tomosynthesis; right mediolateral oblique spot compression with tomosynthesis; right craniocaudal spot compression with tomosynthesis; right mediolateral spot compression with tomosynthesis; right rolled lateral with tomosynthesis; and right rolled medial with tomosynthesis. FILMS COMPARED: The present examination has been compared to prior imaging studies performed at [facility] on 03/31/2016, 04/07/2017, 04/19/2018 and 04/26/2018. This study has been interpreted with the assistance of computer-aided detection. MAMMOGRAM FINDINGS: There are scattered fibroglandular densities. Finding 1: There are stable benign appearing calcifications seen in both breasts. Finding 2: There is a stable intramammary lymph node seen in the right breast. Finding 3: There are post operative changes seen in the upper-outer region of the left breast. There are no suspicious masses, suspicious calcifications, or new areas of architectural distortion. IMPRESSION: THERE IS NO MAMMOGRAPHIC EVIDENCE OF MALIGNANCY. A ROUTINE FOLLOW-UP MAMMOGRAM IN 1 YEAR IS RECOMMENDED. THE RESULTS OF THIS EXAM WERE SENT TO THE PATIENT. ACR BI-RADS Category 2 - Benign finding MAMMOGRAPHY NOTE: 1. A negative mammogram report should not delay a biopsy if a dominant of clinically suspicious mass is present. 2. Approximately 10% to 15% of breast cancers are not detected by mammography. 3. Adenosis and dense breasts may obscure an underlying neoplasm. Reported by: SHEILA HEATON MD Electonically Signed: [id number]
== END 2019-05-02 13:36 | disposition home or self-care (01) ==
LOC: BICMAMMO 13:35
PROVIDERS: ATTEND Specialist
DX: C50.312 Malignant neoplasm of lower-inner quadrant of left female breast (principal)
CPT/HCPCS: 77066; G0279

== ENCOUNTER → 2019-05-03 | Day surgery (SDC) | payer MEDICARE, OTHER ==
[2019-05-01 11:38] VITALS: BMI 39.2
[~2019-05-03] MED LIST: Acetaminophen/Codeine 30-300mg Tablet ONE; CEFAZOLIN 1 GM VIAL ONE; Fentanyl 100 MCG/2 ML VIAL ONE; Gentamicin 80 MG/2 ML VIAL ONE; Iopamidol 370 76% 50 ML VIAL FS ONE; PHENYLEPHRINE-NS 100 MCG/ML 10 ML SYRINGE ONE; PROPOFOL 200 MG/20 ML VIAL ONE; Phenylephrine HCL 10 MG/ML VIAL ONE; Vancomycin 1.5 GRAM/300 ML BAG 1.5 GM in Premix Bag 1 BAG IVPB SCH; Vancomycin HCl 500 MG VIAL ONE
--- NOTE | 2019-05-03 11:17 | RAD ---
Chest AP view INDICATION: Pacemaker placement COMPARISON: November 11, 2018 FINDINGS: Lungs:There is mild interstitial edema involving both lungs Cardiac silhouette:There is moderate cardiomegaly. Aortic valvular prosthesis and mid line sternotomy is stable. There is been interval placement of a new generator pack with an additional pacemaker leads (now 3 total pacemaker leads) is present. Pulmonary vasculature:There is mild pulmonary vascular congestion Pleural spaces:There is a small left pleural effusion. Upper abdomen:No abnormality seen. Osseous structures: No acute osseous abnormality. Additional findings:Low-grade chondroid lesion of the right humerus is similar. IMPRESSION: Interval revision of the left chest wall pacemaker. No pneumothorax. Findings of mild CHF .
--- NOTE | 2019-05-07 18:50 | EKG ---
Test Reason : POST PACEMAKER Blood Pressure : / mmHG Vent. Rate : 075 BPM Atrial Rate : 052 BPM P-R Int : 000 ms QRS Dur : 176 ms QT Int : 510 ms P-R-T Axes : 000 -84 -48 degrees QTc Int : 569 ms AV sequential or dual chamber electronic pacemaker Abnormal ECG When compared with ECG of 09-NOV-2018 22:50, Confirmed by JOE PISANO, SAnisa ([id number]) on 05/07/2019 6:50:21 PM Referred By: PO Confirmed By:DR. Parag DIAZ MD
== END ==
LOC: CCL 06:20
PROVIDERS: ATTEND Internal Medicine Cardiovascular Disease
PROC: 0JH607Z Insertion of Cardiac Resynchronization Pacemaker Pulse Generator into Chest Subcutaneous Tissue and Fascia, Open Approach (ICD-10-PCS; principal; 2019-05-03)
PROC: 0JPT0PZ Removal of Cardiac Rhythm Related Device from Trunk Subcutaneous Tissue and Fascia, Open Approach (ICD-10-PCS; 2019-05-03)
PROC: 02HL3JZ Insertion of Pacemaker Lead into Left Ventricle, Percutaneous Approach (ICD-10-PCS; 2019-05-03)
DX: I13.0 Hypertensive heart and chronic kidney disease with heart failure and stage 1 through stage 4 chronic kidney disease, or unspecified chronic kidney disease (principal); N18.3 Chronic kidney disease, stage 3 (moderate); I50.22 Chronic systolic (congestive) heart failure; I42.0 Dilated cardiomyopathy; I49.5 Sick sinus syndrome; I44.2 Atrioventricular block, complete; I48.0 Paroxysmal atrial fibrillation; E78.5 Hyperlipidemia, unspecified; M19.90 Unspecified osteoarthritis, unspecified site; Z79.01 Long term (current) use of anticoagulants; Z79.811 Long term (current) use of aromatase inhibitors; Z79.899 Other long term (current) drug therapy; Z88.2 Allergy status to sulfonamides; Z88.8 Allergy status to other drugs, medicaments and biological substances; Z95.0 Presence of cardiac pacemaker; Z95.2 Presence of prosthetic heart valve
CPT/HCPCS: 33224; 33228; 36005; 71045; 75820; 93005; C1882; C1900; J0690; J1580; J2370; J2704; J3010; J3370; Q9967

== ENCOUNTER 2019-05-05 20:18 | Emergency (ER) | payer MEDICARE, OTHER | END 2019-05-05 21:44 | disposition home or self-care (01) | LOC: ERS 20:18 | DX: I97.638 Postprocedural hematoma of a circulatory system organ or structure following other circulatory system procedure (principal); M10.9 Gout, unspecified; I13.0 Hypertensive heart and chronic kidney disease with heart failure and stage 1 through stage 4 chronic kidney disease, or unspecified chronic kidney disease; I50.9 Heart failure, unspecified; N18.9 Chronic kidney disease, unspecified; I48.91 Unspecified atrial fibrillation; D64.9 Anemia, unspecified; Z79.1 Long term (current) use of non-steroidal anti-inflammatories (NSAID); Z79.01 Long term (current) use of anticoagulants; Z79.899 Other long term (current) drug therapy | CPT/HCPCS: 99283 ==

== ENCOUNTER 2019-06-02 17:05 | Observation (INO) | payer MEDICARE, OTHER ==
[2019-06-02 17:52] LABS: INR-International Normal Ratio 2.9; Prothrombin Time 29.7 SEC (12.0-14.7)
--- NOTE | 2019-06-02 18:00 | CT ---
CT head noncontrast HISTORY: Injury. COMPARISON: 04/29/2016. FINDINGS: There is no evidence of acute intracranial hemorrhage or infarct. Diffuse cortical atrophy and chronic ischemic small vessel disease are again demonstrated. Mild physiologic calcification at the basal ganglia. There is no mass effect or shift of midline structures. Visualized paranasal sinus es remain well-aerated. Extracranial swelling and scalp injury over the posterior vertex calvarium. Calcification throughout the arterial structures. IMPRESSION: No acute intracranial abnormalities are demonstrated. Atherosclerosis.
[2019-06-02] MEDS ORDERED: Triple Antibiotic Oint 1 GM Packet ONE (18:58)
--- NOTE | 2019-06-02 19:15 | RAD ---
Right shoulder 3 views HISTORY: Injury. FINDINGS: Acromioclavicular and glenohumeral alignment are maintained allowing for difficulty in posi tioning patient for imaging. Sclerotic lesion of the humeral head has the appearance of an enchondroma. No acute fracture or dislocation are apparent. Osseous structures are demineralized. IMPRESSION: Osteoporosis. No acute osseous abnormalities are demonstrated.
[2019-06-02] MEDS ORDERED: Ondansetron ODT 4 MG TAB PO PRN (22:03)
[2019-06-02] MEDS ORDERED: Dextrose 5% in Water 1,000 ML IV PRN (22:03)
[2019-06-02] MEDS ORDERED: Dextrose 50% Abboject 50 ML SYRINGE SLOW IVP PRN (22:03)
[2019-06-02] MEDS ORDERED: Ondansetron PF 4 MG/2 ML Vial IVP PRN (22:03)
[2019-06-02] MEDS ORDERED: Famotidine 20 MG TAB PO SCH (22:15)
[2019-06-02 22:22] VITALS: BMI 42.9
[2019-06-02] MEDS ORDERED: Atorvastatin Calcium 10 MG TAB PO SCH ×2 (22:30→23:00)
--- NOTE | 2019-06-02 22:48 | CT ---
CT head noncontrast HISTORY: Fall. Patient is on blood thinners. COMPARISON: Earlier exam on the same date. FINDINGS: Motion artifact obscures detail somewhat. Subtle areas of increased density adjacent to the inner calvarium of each frontal lobe are in areas of spray artifact from beam hardening. No acute intracranial hemorrhage is suspected. There is no mass effect or shift of midline structures. Diffuse cortical atrophy and chronic ischemic small vessel disease are apparent. Scalp hematoma at the posterior vertex is again demonstrated. IMPRESSION: Stable CT appearance of the head. No acute intracranial abnormalities are demonstrated.
[2019-06-02] MEDS: Acetaminophen 325 MG TAB PO SCH (22:58)
[2019-06-03] MEDS: Acetaminophen 325 MG TAB PO SCH ×2 (05:22→12:32)
--- NOTE | 2019-06-03 06:26 | HP ---
REQUESTING PHYSICIAN: Dr. Yeager. ATTENDING SURGEON: Dr. Galileo Durán. HISTORY OF PRESENT ILLNESS: The patient is an 88-year-old woman who was walking up a slight incline when she lost her balance and fell backwards and hit her head. Her family states that there was no loss of consciousness, but she was brought to the emergency department as she had some swelling back there and she is on Coumadin. She also was noted to have a skin tear to her right elbow. The patient was brought to the emergency department, evaluated, and examined and noted to have scalp hematoma and small skin tear, but no intracranial findings were discovered. Her INR was 2.9. Per our protocol, she was admitted for observation and a repeat head CT. Of note, her repeat head CT was negative. ALLERGIES: CELEBREX AND SULFA. CURRENT MEDICATIONS: 1. Tylenol. 2. Multivitamin. 3. Simvastatin. 4. Coumadin. 5. Anastrozole. 6. Calcium. 7. Torsemide. 8. Carvedilol. 9. Iron. 10. Pacerone. 11. Potassium. PAST MEDICAL HISTORY: Atrial fibrillation, CHF, hyperlipidemia, hypertension, shingles, gout. PAST SURGICAL HISTORY: Pacemaker placement, valve replacement, hemorrhoidectomy, partial hysterectomy, pacer lead replacement in April 2019, breast lumpectomy. SOCIAL HISTORY: The patient lives independently with family nearby. She denies drug, tobacco, or alcohol use. REVIEW OF SYSTEMS: A 10-point review of systems is negative except otherwise stated. PHYSICAL EXAMINATION: VITAL SIGNS: Blood pressure 137/62, heart rate 75, respirations 22, oxygen saturation 99% on room air, and temperature is 98.3. GENERAL: The patient is resting comfortably in bed. She is awake, alert, and oriented x3. Hosford Coma Scale is 15. HEENT: Head is normocephalic with small contusion noted to the posterior scalp. Eyes, extraocular motion intact. PERRLA bilaterally. Ears are atraumatic without discharge. Nose is atraumatic without discharge. Oropharynx is clear. NECK: Nontender. Trachea is midline. CHEST: Clear to auscultation with good inspiratory and expiratory effort. HEART: Irregularly irregular rhythm consistent with her atrial fibrillation. ABDOMEN: Soft, flat, nontender with active bowel sounds. EXTREMITIES: Neurovascularly intact x4. Right upper extremity has a wound dressed that by report is a skin tear to the elbow. BACK: By report is atraumatic and nontender. LABORATORY FINDINGS: PT 30, INR 2.9, PTT 40. RADIOGRAPHIC FINDINGS: CT of the brain without contrast shows no acute intracranial abnormalities are demonstrated. Followup CT approximately 5 hour later again shows this, no acute findings. Views of the right shoulder show no acute osseous abnormality. ASSESSMENT AND PLAN: 1. Status post ground level fall, on Coumadin. 2. Scalp contusion. 3. Right elbow skin tear. Plan will be to admit the patient to the surgical floor for serial exams. Of note, the patient was admitted prior to her 2nd CT. At the time of this dictation, this will likely indicate that the patient will be able to be discharged in the morning. She will have pulmonary toilet, gastritis and mechanical VTE prophylaxis, and nonnarcotic pain medications. The evaluation, examination, laboratory, and radiographic findings were discussed with Dr. Durán prior to this dictation. Job ID: [id number]
[2019-06-03 08:51] LABS: #Eosinphils 0.3 thou/uL (0.0-0.7); #Lymphocytes 1.8 thou/uL (1.20-3.40); #Monocytes 0.8 thou/uL (0.11-0.59); #Neutrophils 2.7 thou/uL (1.40-6.50); %Basophils 0.8 % (0.0-1.0); %Eosinophils 4.6 % (0.0-10.0); %Lymphocytes 32.3 % (21.0-51.0); %Neutrophils 48.3 % (42.0-75.0); Mean Corpuscular HGB CONC 32.5 g/dL (32.0-36.0); Mean Corpuscular Hemoglobin 33.6 pg (27.0-31.0); Mean Platelet Volume 8.8 fL (7.4-10.4); Platelet Count 203 thou/uL (130-400); RBC Distribution Width 12.7 % (11.5-14.5); Red Blood Cell (RBC) Count 3.28 mill/uL (4.20-5.40); White Blood Cell (WBC) Count 5.7 thou/uL (4.8-10.8)
[2019-06-03] MEDS ORDERED: Prenatal Vitamin 1 TAB PO SCH (09:00)
[2019-06-03] MEDS ORDERED: Potassium Chloride 10 MEQ TAB PO SCH (09:00)
[2019-06-03] MEDS ORDERED: Ferrous Sulfate 325 MG TAB PO SCH (09:00)
[2019-06-03] MEDS ORDERED: Bacitracin Zinc Ointment 30 gm TUBE TOP SCH (09:00)
[2019-06-03] MEDS ORDERED: Anastrozole 1 MG TAB PO SCH (09:00)
[2019-06-03] MEDS ORDERED: Amiodarone 200 MG TAB PO SCH (09:00)
[2019-06-03] MEDS ORDERED: Calcium Carbonate + Vit D 1 TAB PO SCH (09:00)
[2019-06-03] MEDS ORDERED: Carvedilol 6.25 MG TAB PO SCH (09:00)
[2019-06-03] MEDS ORDERED: Furosemide 40 MG TAB PO SCH (09:00)
[2019-06-03 09:05] LABS: INR-International Normal Ratio 2.5; PTT 38.5 SEC (22.9-36.1); Prothrombin Time 26.5 SEC (12.0-14.7)
[2019-06-03 09:12] LABS: Anion Gap 13 mmol/L (10-20); BUN (Urea Nitrogen) 32 mg/dL (9.8-20.1); Calc. Creatinine Clearance 36 mL/min (70-130); Calcium 8.7 mg/dL (7.8-10.44); Carbon Dioxide 33 mmol/L (23-31); Chloride 101 mmol/L (98-107); Estimated GFR-MDRD 29; Glucose 138 mg/dL (83-110); Potassium 3.5 mmol/L (3.5-5.1); Sodium 143 mmol/L (136-145)
[2019-06-03 11:26] VITALS: BP 119/72; TEMP 98.1
[2019-06-03] MEDS ORDERED: Famotidine 20 MG TAB PO SCH (21:00)
--- NOTE | 2019-06-04 12:45 | DIS ---
DATE OF ADMISSION: 06/02/2019 DATE OF DISCHARGE: 06/03/2019 ADMISSION DIAGNOSES: 1. Status post ground level fall, on Coumadin. 2. Scalp contusion. DISCHARGE DIAGNOSES: 1. Status post ground level fall, on Coumadin. 2. Scalp contusion with negative brain CT scan two times. CONSULTING PHYSICIAN: None. PROCEDURE: None. HOSPITAL COURSE: Ms. Dave is 88-year-old female, status post ground level fall. She sustained a scalp contusion and hematoma, improved over time. The patient's admission INR was 2.9. Per Trauma protocol, she has been admitted to the hospital for observation. The patient's initial brain CT scan negative. The patient's repeat CT scan the next morning also negative. The patient is neurologically intact. GCS was 15. Vital signs have been stable. The patient's scalp hematoma and contusion, improved. The patient tolerated with regular diet and urine is adequate. PHYSICAL EXAMINATION: GENERAL: Currently, the patient lying in bed comfortable. No acute respiratory distress. GCS 15. The patient is oriented x3. The patient is alert and awake. VITAL SIGNS: Temperature 98.1, heart rate 75, respiratory rate 15, O2 saturation 93% on room air, and blood pressure 119/72. LUNGS: Clear bilaterally. HEART: Regular rate and rhythm. ABDOMEN: Soft, nondistended. EXTREMITIES: Neurovascularly intact x4. NEUROLOGY: No focal neurology deficits. DISCHARGE CONDITION: Good. DISCHARGE DISPOSITION: Home. DISCHARGE INSTRUCTIONS: The patient is to take medication as directed. The patient is to pay attention to concussion symptoms or any dangerous signs, patient is to report to the ED immediately, include refractive headache, refractive vomiting, change of mental status with any signs of weakness or any sign of double vision or any nasal discharge or ear discharge bilaterally. Neurosurgery do not require a followup with imaging. DISCHARGE MEDICATION: Resume all her medications, Tylenol for headache. Job ID: [id number]
[2019-06-04] MEDS ORDERED: Atorvastatin Calcium 10 MG TAB PO SCH (21:00)
== END 2019-06-03 13:03 | disposition home or self-care (01) ==
LOC: ERS 17:05 → INTOOBSV 21:12 → SJJU 21:12
PROVIDERS: ADMIT Surgery; ATTEND Surgery
DX: S00.03XA Contusion of scalp, initial encounter (principal); S50.311A Abrasion of right elbow, initial encounter; I13.0 Hypertensive heart and chronic kidney disease with heart failure and stage 1 through stage 4 chronic kidney disease, or unspecified chronic kidney disease; N18.9 Chronic kidney disease, unspecified; I50.9 Heart failure, unspecified; E78.5 Hyperlipidemia, unspecified; I48.91 Unspecified atrial fibrillation; Z79.01 Long term (current) use of anticoagulants; Z79.899 Other long term (current) drug therapy; Z88.6 Allergy status to analgesic agent; Z88.2 Allergy status to sulfonamides; Z95.0 Presence of cardiac pacemaker; Z95.4 Presence of other heart-valve replacement; W10.2XXA Fall (on)(from) incline, initial encounter
CPT/HCPCS: 36415; 70450; 80048; 85025; 85610; 85730; G0378

== ENCOUNTER 2019-06-18 09:58 | Outpatient (CLI) | payer MEDICARE, OTHER ==
--- NOTE | 2019-06-18 11:00 | BD ---
DEXA BONE DENSITY STUDY: Date: 06/18/2019 HISTORY: Osteoporosis screening. COMPARISON: 06/14/2018. FINDINGS: Lumbar Spine: BMD (g/cm2) L1 0.830 T-Score: -1.5 L2 0.840 T-Score: -1.7 L3 0.841 T-Score: -2.2 L4 0.998 T-Score: -0.6 L1-L4 0.885 T-Score: -1.5 Left Femoral Neck: 0.566 T-Score: -2.5 Total Femur: 0.836 T-Score: -0.9 WHO Classification: Osteoporosis. Change from baseline of the lumbar spine is +4.2%, statistically significant, although likely sequela e of degenerative change. Change from baseline of left femoral neck is not statistically significant. IMPRESSION: Osteoporosis with elevated fracture risk. POS: OFF
== END 2019-06-18 09:59 | disposition home or self-care (01) ==
LOC: BICMAMMO 09:58
PROVIDERS: ATTEND Internal Medicine Hematology & Oncology
DX: M81.0 Age-related osteoporosis without current pathological fracture (principal); N95.9 Unspecified menopausal and perimenopausal disorder; C50.812 Malignant neoplasm of overlapping sites of left female breast
CPT/HCPCS: 77080

== ENCOUNTER 2020-05-05 14:01 | Outpatient (CLI) | payer MEDICARE, OTHER ==
--- NOTE | 2020-05-05 14:38 | MMO ---
Bilateral MAMMO Bilat Diag [facility]. CLINICAL HISTORY: Patient is 89 years old and is seen for diagnostic exam. The patient has the following family history of breast cancer: niece, malignant (generic). The patient has a history of malignant (generic) in the left breast in April,. The patient has a history of left Ultrasound Guided Core Biopsy in April, - malignant, left Lumpectomy in 2018 - malignant and left Excisional Biopsy in 1985 - benign. VIEWS: The views performed were: bilateral mediolateral with tomosynthesis; bilateral craniocaudal with tomosynthesis; bilateral mediolateral oblique with tomosynthesis; and left craniocaudal. FILMS COMPARED: The present examination has been compared to prior imaging studies performed at [facility] on 04/07/2017, 04/19/2018, 04/26/2018 and 05/02/2019. This study has been interpreted with the assistance of computer-aided detection. MAMMOGRAM FINDINGS: There are scattered fibroglandular densities. Finding 1: There are stable benign appearing calcifications seen in both breasts. Finding 2: There is an area of architectural distortion with associated post-surgical scar seen in the left breast. There are no suspicious masses, suspicious calcifications, or new areas of architectural distortion. IMPRESSION: THERE IS NO MAMMOGRAPHIC EVIDENCE OF MALIGNANCY. A ROUTINE FOLLOW-UP MAMMOGRAM IN 1 YEAR IS RECOMMENDED. THE RESULTS OF THIS EXAM WERE SENT TO THE PATIENT. ACR BI-RADS Category 2 - Benign finding MAMMOGRAPHY NOTE: 1. A negative mammogram report should not delay a biopsy if a dominant of clinically suspicious mass is present. 2. Approximately 10% to 15% of breast cancers are not detected by mammography. 3. Adenosis and dense breasts may obscure an underlying neoplasm. Reported by: SHEILA HEATON MD Electonically Signed: [id number]
== END 2020-05-05 14:02 | disposition home or self-care (01) ==
LOC: BICMAMMO 14:01
PROVIDERS: ATTEND Specialist
DX: Z08 Encounter for follow-up examination after completed treatment for malignant neoplasm (principal); Z85.3 Personal history of malignant neoplasm of breast
CPT/HCPCS: 77066; G0279

== ENCOUNTER 2020-06-21 21:15 | Emergency (ER) | payer MEDICARE, OTHER ==
[2020-06-21 22:11] LABS: INR-International Normal Ratio 2.7; PTT 49.3 sec (22.9-36.1); Prothrombin Time 29.1 sec (12.0-14.7)
[2020-06-21 22:21] LABS: Hemoglobin 11.5 g/dL (12.0-16.0); Mean Corpuscular HGB CONC 32.5 g/dL (32.0-36.0); Mean Corpuscular Hemoglobin 34.4 pg (27.0-31.0); RBC Distribution Width 13.3 % (11.5-14.5); Red Blood Cell (RBC) Count 3.34 mill/uL (4.20-5.40)
[2020-06-21 22:26] LABS: ALT (SGPT) 13 U/L (8-55); AST (SGOT) 15 U/L (5-34); Albumin 3.5 g/dL (3.4-4.8); Alkaline Phosphatase 68 U/L (40-110); Anion Gap 12 mmol/L (10-20); BUN (Urea Nitrogen) 38 mg/dL (9.8-20.1); Bilirubin, Total 1.5 mg/dL (0.2-1.2); Calc. Creatinine Clearance 0 mL/min (70-130); Calcium 8.6 mg/dL (7.8-10.44); Carbon Dioxide 34 mmol/L (23-31); Chloride 99 mmol/L (98-107); Glucose 117 mg/dL (83-110); Potassium 3.9 mmol/L (3.5-5.1); Protein, Total 6.5 g/dL (5.8-8.1); Sodium 141 mmol/L (136-145)
[2020-06-21 22:28] LABS: Band 12 % (5-11); Eosinophils 2 % (0-10); Lymphocytes 29 % (21-51); MDiff Complete? YES; Mean Platelet Volume 8.6 fL (7.4-10.4); Monocytes 18 % (0-10); Neutrophil 37 % (42-75); Platelet Count 185 thou/uL (130-400); White Blood Cell (WBC) Count 6.5 thou/uL (4.8-10.8)
== END 2020-06-21 23:06 | disposition home or self-care (01) ==
LOC: ERS 21:15
DX: S80.01XA Contusion of right knee, initial encounter (principal); E78.5 Hyperlipidemia, unspecified; I13.0 Hypertensive heart and chronic kidney disease with heart failure and stage 1 through stage 4 chronic kidney disease, or unspecified chronic kidney disease; I50.9 Heart failure, unspecified; N18.9 Chronic kidney disease, unspecified; M10.9 Gout, unspecified; D64.9 Anemia, unspecified; Z79.01 Long term (current) use of anticoagulants; Z79.899 Other long term (current) drug therapy; W18.30XA Fall on same level, unspecified, initial encounter
CPT/HCPCS: 70450; 70486; 72125; 80053; 85025; 85610; 85730

== ENCOUNTER 2020-07-24 13:07 | Outpatient (CLI) | payer MEDICARE, OTHER | END 2020-07-24 13:08 | disposition home or self-care (01) | LOC: BICMAMMO 13:07 | PROVIDERS: ATTEND Internal Medicine Hematology & Oncology | DX: M81.0 Age-related osteoporosis without current pathological fracture (principal); T38.6X5A Adverse effect of antigonadotrophins, antiestrogens, antiandrogens, not elsewhere classified, initial encounter; C50.812 Malignant neoplasm of overlapping sites of left female breast; M85.88 Other specified disorders of bone density and structure, other site | CPT/HCPCS: 77080 ==

== ENCOUNTER 2020-08-07 14:28 | Inpatient (IN) | payer MEDICARE, OTHER ==
[2020-08-07 15:09] LABS: #Eosinphils 0.1 thou/uL (0.0-0.7); #Lymphocytes 1.7 thou/uL (1.20-3.40); #Monocytes 0.8 thou/uL (0.11-0.59); #Neutrophils 3.8 thou/uL (1.40-6.50); %Basophils 0.7 % (0.0-1.0); %Eosinophils 1.8 % (0.0-10.0); %Neutrophils 59.5 % (42.0-75.0); Hemoglobin 8.8 g/dL (12.0-16.0); Mean Corpuscular HGB CONC 32.2 g/dL (32.0-36.0); Mean Corpuscular Hemoglobin 33.8 pg (27.0-31.0); Mean Platelet Volume 8.5 fL (7.4-10.4); Platelet Count 190 thou/uL (130-400); RBC Distribution Width 14.2 % (11.5-14.5); Red Blood Cell (RBC) Count 2.62 mill/uL (4.20-5.40); White Blood Cell (WBC) Count 6.4 thou/uL (4.8-10.8)
[2020-08-07 15:15] LABS: INR-International Normal Ratio 3.2; PTT 42.4 sec (22.9-36.1); Prothrombin Time 33.8 sec (12.0-14.7)
[2020-08-07 15:19] LABS: Bilirubin Negative (Negative); Blood, Urine Negative (Negative); Clarity Clear (Clear); Glucose, Urine (Dipstick) Normal (Negative); Ketone, Urine Negative (Negative); Leukocyte Negative Leu/uL (Negative); Nitrite Negative (Negative); Protein, Urine (Dipstick) Negative (Neg-Trace); Specific Gravity, Urine 1.011 (1.002-1.036); Urobilinogen Normal mg/dL (Less than 2); pH, Urine 6.5 (5.0-9.0)
[2020-08-07 15:29] LABS: ALT (SGPT) 11 U/L (8-55); AST (SGOT) 19 U/L (5-34); Albumin 3.2 g/dL (3.4-4.8); Alkaline Phosphatase 65 U/L (40-110); Anion Gap 13 mmol/L (10-20); BUN (Urea Nitrogen) 49 mg/dL (9.8-20.1); Bilirubin, Total 1.9 mg/dL (0.2-1.2); Calc. Creatinine Clearance 0 mL/min (70-130); Calcium 8.5 mg/dL (7.8-10.44); Carbon Dioxide 32 mmol/L (23-31); Chloride 101 mmol/L (98-107); Glucose 112 mg/dL (83-110); Lipase 13 U/L (8-78); Protein, Total 6.2 g/dL (5.8-8.1); Sodium 142 mmol/L (136-145)
[2020-08-07] MEDS ORDERED: Acetaminophen 500 MG TAB ONE (16:31)
[2020-08-07] MEDS ORDERED: Acetaminophen 500 MG TAB PO PRN (17:45)
[2020-08-07] MEDS ORDERED: Torsemide 20 MG TAB PO SCH (18:00)
[2020-08-07] MEDS ORDERED: Phytonadione 5 MG TAB PO SCH (20:30)
[2020-08-07 20:39] LABS: Hemoglobin 8.5 g/dL (12.0-16.0)
[2020-08-07] MEDS ORDERED: Carvedilol 25 MG TAB PO SCH ×2 (21:00→21:16)
[2020-08-08 03:17] LABS: SARS-CoV-2 NAA Rapid Test Not Detected (NotDetected)
[2020-08-08 04:41] LABS: INR-International Normal Ratio 3.2; Prothrombin Time 33.7 sec (12.0-14.7)
[2020-08-08 04:42] LABS: Hemoglobin 8.6 g/dL (12.0-16.0)
[2020-08-08 04:58] LABS: Anion Gap 14 mmol/L (10-20); BUN (Urea Nitrogen) 45 mg/dL (9.8-20.1); Calc. Creatinine Clearance 29 mL/min (70-130); Calcium 8.6 mg/dL (7.8-10.44); Carbon Dioxide 32 mmol/L (23-31); Chloride 101 mmol/L (98-107); Glucose 91 mg/dL (83-110); Potassium 3.8 mmol/L (3.5-5.1); Sodium 143 mmol/L (136-145)
[2020-08-08] MEDS: Levothyroxine Sodium 125 MCG TAB PO SCH (06:22)
[2020-08-08] MEDS ORDERED: Phytonadione 5 MG TAB PO SCH (08:30)
[2020-08-08] MEDS ORDERED: Torsemide 20 MG TAB PO SCH (09:00)
[2020-08-08] MEDS: Torsemide 20 MG TAB PO SCH (09:18)
[2020-08-08] MEDS: Anastrozole 1 MG TAB PO SCH (09:18)
[2020-08-08] MEDS: Amiodarone 200 MG TAB PO SCH (09:18)
[2020-08-08 10:57] LABS: Hemoglobin 8.4 g/dL (12.0-16.0)
[2020-08-08] MEDS: Carvedilol 6.25 MG TAB PO SCH (22:15)
[2020-08-08] MEDS: traZODone HCl 50 MG TAB PO PRN (22:16)
[2020-08-08] MEDS: Pantoprazole 40 MG VIAL IVP SCH (22:16)
[2020-08-08] MEDS: Polyethylene Glycol 3350 17 GM Packet PO SCH (22:16)
[2020-08-09] MEDS ORDERED: Electrolyte Replacement Protocol 1 EACH FS SCH (01:30)
[2020-08-09] MEDS ORDERED: Electrolyte Replacement Protocol FS PRN (01:45)
[2020-08-09 04:59] LABS: #Eosinphils 0.1 thou/uL (0.0-0.7); #Lymphocytes 1.8 thou/uL (1.20-3.40); #Monocytes 0.7 thou/uL (0.11-0.59); #Neutrophils 3.8 thou/uL (1.40-6.50); %Basophils 0.7 % (0.0-1.0); %Eosinophils 2.2 % (0.0-10.0); %Lymphocytes 28.3 % (21.0-51.0); %Monocytes 10.2 % (0.0-10.0); %Neutrophils 58.6 % (42.0-75.0); Hemoglobin 9.4 g/dL (12.0-16.0); Mean Corpuscular HGB CONC 30.5 g/dL (32.0-36.0); Mean Corpuscular Hemoglobin 32.9 pg (27.0-31.0); Mean Platelet Volume 8.2 fL (7.4-10.4); Platelet Count 225 thou/uL (130-400); RBC Distribution Width 14.2 % (11.5-14.5); Red Blood Cell (RBC) Count 2.84 mill/uL (4.20-5.40); White Blood Cell (WBC) Count 6.5 thou/uL (4.8-10.8)
[2020-08-09 05:04] LABS: INR-International Normal Ratio 1.7; Prothrombin Time 20.2 sec (12.0-14.7)
[2020-08-09 05:21] LABS: ALT (SGPT) 10 U/L (8-55); AST (SGOT) 16 U/L (5-34); Albumin 3.2 g/dL (3.4-4.8); Alkaline Phosphatase 65 U/L (40-110); BUN (Urea Nitrogen) 43 mg/dL (9.8-20.1); Bilirubin, Total 1.8 mg/dL (0.2-1.2); Calc. Creatinine Clearance 26 mL/min (70-130); Calcium 8.3 mg/dL (7.8-10.44); Globulin 3.1 g/dL (2.4-3.5); Glucose 117 mg/dL (83-110); Magnesium 2.6 mg/dL (1.6-2.6); Protein, Total 6.3 g/dL (5.8-8.1)
[2020-08-09 05:27] LABS: Anion Gap 12 mmol/L (10-20)
[2020-08-09 05:28] LABS: Chloride 99 mmol/L (98-107); Potassium 3.8 mmol/L (3.5-5.1); Sodium 145 mmol/L (136-145)
[2020-08-09 05:31] LABS: Carbon Dioxide 32 mmol/L (23-31)
[2020-08-09] MEDS: Levothyroxine Sodium 125 MCG TAB PO SCH (06:01)
[2020-08-09] MEDS: Torsemide 20 MG TAB PO SCH (08:10)
[2020-08-09] MEDS: Carvedilol 6.25 MG TAB PO SCH ×3 (08:10→21:01)
[2020-08-09] MEDS: Anastrozole 1 MG TAB PO SCH (08:10)
[2020-08-09] MEDS: Pantoprazole 40 MG VIAL IVP SCH ×2 (08:11→21:01)
[2020-08-09] MEDS: Amiodarone 200 MG TAB PO SCH (08:11)
[2020-08-09] MEDS ORDERED: Promethazine HCl 25 MG/ML VIAL IM PRN (09:45)
[2020-08-09] MEDS ORDERED: Promethazine HCl 25 MG/ML VIAL SLOW IVP PRN (09:45)
[2020-08-09] MEDS ORDERED: Ondansetron HCl/PF 4 MG/2 ML Vial IVP PRN (09:45)
[2020-08-09] MEDS ORDERED: Lidocaine 1% PF 5 ML VIAL ONE (09:57)
[2020-08-09] MEDS ORDERED: EPINEPHrine 1 MG/10 ML Abboject SYRINGE ONE ×2 (09:57→19:30)
[2020-08-09] MEDS ORDERED: Propofol 1,000 MG/100 ML VIAL IV ONE (09:57)
[2020-08-09] MEDS ORDERED: PHENYLEPHRINE-NS 100 MCG/ML 10 ML SYRINGE ONE (09:57)
[2020-08-09] MEDS ORDERED: Sodium Chloride 0.9% 10 ML ONE (10:03)
[2020-08-09] MEDS ORDERED: Meclizine HCl 25 MG TAB PO SCH (16:30)
[2020-08-09] MEDS ORDERED: Doxycycline 100 MG CAP PO SCH (17:00)
[2020-08-09] MEDS ORDERED: cefTRIAXone\\ROCEPHIN 1 GM in Sodium Chloride 0.9% 100 ML IVPB SCH (17:00)
[2020-08-09] MEDS ORDERED: Furosemide 40 MG/4 ML VIAL SLOW IVP SCH (18:30)
[2020-08-09 19:19] LABS: Base Excess (BEa) 4.3 mEq/L (-2.0 to +3.0); Calcium, Ionized (arterial) 1.08 mmol/L (1.12-1.30); Carboxyhemoglobin (COHb) 1.7 gm% (0.0-3.0); Hemoglobin (Hb) 10.7 g/dL (12.0-16.0); O2 Tension (PaO2), arterial 62.8 mmHg (> 60.0); Potassium - ABG Lab 3.47 mmol/L (3.70-5.30)
[2020-08-09 19:21] LABS: CO2 Tension 96.5 mmHg (35.0-45.0); pH, Arterial 7.18 (7.35-7.45)
[2020-08-09 19:21] LABS: Hemoglobin 9.9 g/dL (12.0-16.0); Mean Corpuscular HGB CONC 31.1 g/dL (32.0-36.0); Mean Corpuscular Hemoglobin 33.7 pg (27.0-31.0); Mean Platelet Volume 8.2 fL (7.4-10.4); Platelet Count 231 thou/uL (130-400); RBC Distribution Width 14.1 % (11.5-14.5); Red Blood Cell (RBC) Count 2.93 mill/uL (4.20-5.40); White Blood Cell (WBC) Count 23.1 thou/uL (4.8-10.8)
[2020-08-09 19:22] LABS: ALV-art Gradient 529.575 mmHg (0-20); Puncture Site LBA
[2020-08-09 19:37] LABS: Band 18 % (5-11); Basophilic Stippling SLIGHT = 1-2 cells (100X) (None Seen); Lymphocytes 6 % (21-51); MDiff Complete? YES; Macrocytosis SLIGHT = 6-15 cells (100X) (0-5/hpf); Monocytes 7 % (0-10); Neutrophil 69 % (42-75); Platelet Morphology Comment Appears Adequate; Polychromasia MODERATE = 3-4 cells (100X) (0-2/hpf)
[2020-08-09] MEDS ORDERED: Fentanyl CADD 100 ML ONE (19:48)
[2020-08-09] MEDS: Fentanyl CADD 100 ML IV SCH ×2 (19:55→20:51)
[2020-08-09] MEDS: Piperacillin/Tazobactam 2.25 GM in Sodium Chloride 0.9% 100 ML IVPB SCH (19:57)
[2020-08-09 20:00] LABS: Actual Bicarbonate (HCO3a) 34.1 mEq/L (22-28); Base Excess (BEa) 8.3 mEq/L (-2.0 to +3.0); CO2 Tension 53.6 mmHg (35.0-45.0); Calcium, Ionized (arterial) 1.02 mmol/L (1.12-1.30); Carboxyhemoglobin (COHb) 1.4 gm% (0.0-3.0); Hemoglobin (Hb) 10.4 g/dL (12.0-16.0); O2 Tension (PaO2), arterial 150.9 mmHg (> 60.0); Potassium - ABG Lab 3.63 mmol/L (3.70-5.30); pH, Arterial 7.42 (7.35-7.45)
[2020-08-09] MEDS ORDERED: DISCONTINUE PREVIOUS NARCOTIC PAIN MEDICATIONS AND BENZODIAZEPINES FS SCH (20:00)
[2020-08-09] MEDS ORDERED: Propofol 1,000 MG/100 ML VIAL IV PRN (20:00)
[2020-08-09] MEDS ORDERED: Propofol BOLUS 1,000 MG/100 ML VIAL IV PRN (20:00)
[2020-08-09] MEDS ORDERED: Vancomycin 1.5 GRAM/300 ML BAG 1.5 GM in Premix Bag 1 BAG IVPB SCH (20:00)
[2020-08-09] MEDS ORDERED: Fentanyl BOLUS 250 ML IVPB PRN (20:00)
[2020-08-09] MEDS ORDERED: Morphine 2 MG/ML VIAL SLOW IVP PRN (20:00)
[2020-08-09] MEDS ORDERED: Lorazepam 2 MG/ML VIAL SLOW IVP PRN (20:00)
[2020-08-09 20:01] LABS: Puncture Site LBA
[2020-08-09] MEDS ORDERED: Norepinephrine 8 MG/0.9% NS 250 ML ONE (20:07)
[2020-08-09] MEDS ORDERED: Sodium Chloride 0.9% 500 ML IVPB SCH (20:15)
[2020-08-09 20:21] LABS: Lactic Acid 1.6 mmol/L (0.5-2.2)
[2020-08-09 20:23] LABS: ALT (SGPT) 12 U/L (8-55); AST (SGOT) 20 U/L (5-34); Albumin 3.3 g/dL (3.4-4.8); Alkaline Phosphatase 65 U/L (40-110); Anion Gap 17 mmol/L (10-20); BUN (Urea Nitrogen) 40 mg/dL (9.8-20.1); Bilirubin, Total 2.8 mg/dL (0.2-1.2); Calc. Creatinine Clearance 28 mL/min (70-130); Calcium 8.2 mg/dL (7.8-10.44); Carbon Dioxide 33 mmol/L (23-31); Chloride 98 mmol/L (98-107); Glucose 181 mg/dL (83-110); Potassium 3.7 mmol/L (3.5-5.1); Protein, Total 6.3 g/dL (5.8-8.1); Sodium 144 mmol/L (136-145)
[2020-08-09] MEDS: Propofol 1,000 MG/100 ML VIAL IV ONE ×2 (20:49→23:44)
[2020-08-09] MEDS: Polyethylene Glycol 3350 17 GM Packet PO SCH (21:01)
[2020-08-10] MEDS: Piperacillin/Tazobactam 2.25 GM in Sodium Chloride 0.9% 100 ML IVPB SCH ×5 (00:50→23:51)
[2020-08-10] MEDS: Levothyroxine Sodium 125 MCG TAB PO SCH (05:04)
[2020-08-10 06:50] LABS: Base Excess (BEa) 14.5 mEq/L (-2.0 to +3.0); CO2 Tension 32.2 mmHg (35.0-45.0); Calcium, Ionized (arterial) 0.94 mmol/L (1.12-1.30); Carboxyhemoglobin (COHb) 1.2 gm% (0.0-3.0); Hemoglobin (Hb) 8.9 g/dL (12.0-16.0); Potassium - ABG Lab 2.86 mmol/L (3.70-5.30)
[2020-08-10 07:40] LABS: O2 Tension (PaO2), arterial 51.6 mmHg (> 60.0); pH, Arterial 7.67 (7.35-7.45)
[2020-08-10 07:41] LABS: Puncture Site RRA
[2020-08-10] MEDS: Amiodarone 200 MG TAB PO SCH (08:51)
[2020-08-10] MEDS: Pantoprazole 40 MG VIAL IVP SCH ×2 (08:51→20:46)
[2020-08-10] MEDS: Anastrozole 1 MG TAB PO SCH (09:00)
[2020-08-10] MEDS: Carvedilol 6.25 MG TAB PO SCH ×3 (09:00→20:45)
[2020-08-10] MEDS: Torsemide 20 MG TAB PO SCH (09:00)
[2020-08-10 12:31] LABS: #Basophils 0.1 thou/uL (0.0-0.2); #Eosinphils 0.1 thou/uL (0.0-0.7); #Lymphocytes 2.3 thou/uL (1.20-3.40); #Monocytes 1.9 thou/uL (0.11-0.59); %Basophils 0.4 % (0.0-1.0); %Eosinophils 0.4 % (0.0-10.0); %Lymphocytes 11.2 % (21.0-51.0); %Monocytes 9.4 % (0.0-10.0); %Neutrophils 78.7 % (42.0-75.0); Hemoglobin 8.4 g/dL (12.0-16.0); Mean Corpuscular HGB CONC 31.9 g/dL (32.0-36.0); Mean Corpuscular Hemoglobin 33.7 pg (27.0-31.0); Mean Platelet Volume 8.4 fL (7.4-10.4); Platelet Count 213 thou/uL (130-400); RBC Distribution Width 14.6 % (11.5-14.5); Red Blood Cell (RBC) Count 2.49 mill/uL (4.20-5.40); White Blood Cell (WBC) Count 20.3 thou/uL (4.8-10.8)
[2020-08-10 12:48] LABS: ALT (SGPT) 20 U/L (8-55); AST (SGOT) 29 U/L (5-34); Albumin 2.5 g/dL (3.4-4.8); Alkaline Phosphatase 51 U/L (40-110); Anion Gap 10 mmol/L (10-20); BUN (Urea Nitrogen) 42 mg/dL (9.8-20.1); Bilirubin, Total 3.7 mg/dL (0.2-1.2); Calc. Creatinine Clearance 0 mL/min (70-130); Calcium 7.6 mg/dL (7.8-10.44); Carbon Dioxide 34 mmol/L (23-31); Chloride 103 mmol/L (98-107); Globulin 2.6 g/dL (2.4-3.5); Glucose 113 mg/dL (83-110); Protein, Total 5.1 g/dL (5.8-8.1); Sodium 144 mmol/L (136-145)
[2020-08-10] MEDS ORDERED: Fentanyl CADD 100 ML ONE (13:15)
[2020-08-10] MEDS: Potassium Chloride 20 MEQ in Premix Bag 1 BAG IVPB SCH ×2 (13:58→16:40)
[2020-08-10] MEDS ORDERED: Nitroglycerin 50 MG/250 ML BOT 0 ML ONE (14:46)
[2020-08-10] MEDS ORDERED: VANCOMYCIN 1.25 GM/250 ML BAG 1.25 GM in Premix Bag 1 BAG IVPB SCH (15:00)
[2020-08-10] MEDS: Norepinephrine 8 MG/0.9% NS 250 ML IVPB PRN (18:28)
[2020-08-10] MEDS ORDERED: Vancomycin 1.5 GRAM/300 ML BAG 1.5 GM in Premix Bag 1 BAG IVPB SCH (20:00)
[2020-08-10] MEDS: Polyethylene Glycol 3350 17 GM Packet PO SCH (20:46)
[2020-08-11] MEDS ORDERED: Fentanyl CADD 100 ML ONE (03:59)
[2020-08-11] MEDS: Fentanyl CADD 100 ML IV SCH (04:05)
[2020-08-11 04:35] LABS: Band 9 % (5-11); Eosinophils 3 % (0-10); Hemoglobin 8.3 g/dL (12.0-16.0); Hypochromia SLIGHT = 6-15 cells (100X) (0-5/hpf); Lymphocytes 11 % (21-51); MDiff Complete? YES; Macrocytosis SLIGHT = 6-15 cells (100X) (0-5/hpf); Mean Corpuscular HGB CONC 31.5 g/dL (32.0-36.0); Mean Corpuscular Hemoglobin 33.4 pg (27.0-31.0); Mean Platelet Volume 8.5 fL (7.4-10.4); Monocytes 7 % (0-10); Neutrophil 70 % (42-75); Platelet Count 219 thou/uL (130-400); Platelet Morphology Comment Appears Adequate; RBC Distribution Width 14.7 % (11.5-14.5); Red Blood Cell (RBC) Count 2.49 mill/uL (4.20-5.40); White Blood Cell (WBC) Count 17.9 thou/uL (4.8-10.8)
[2020-08-11 04:39] LABS: Chloride 105 mmol/L (98-107); Potassium 3.1 mmol/L (3.5-5.1); Sodium 145 mmol/L (136-145)
[2020-08-11 04:40] LABS: Calcium 7.8 mg/dL (7.8-10.44); Glucose 101 mg/dL (83-110)
[2020-08-11 04:42] LABS: Anion Gap 11 mmol/L (10-20); Carbon Dioxide 32 mmol/L (23-31)
[2020-08-11 04:44] LABS: Calc. Creatinine Clearance 32 mL/min (70-130)
[2020-08-11 04:45] LABS: BUN (Urea Nitrogen) 41 mg/dL (9.8-20.1)
[2020-08-11] MEDS: Levothyroxine Sodium 125 MCG TAB PO SCH (05:29)
[2020-08-11] MEDS: Piperacillin/Tazobactam 2.25 GM in Sodium Chloride 0.9% 100 ML IVPB SCH ×3 (05:29→18:37)
[2020-08-11 07:26] LABS: Actual Bicarbonate (HCO3a) 32.5 mEq/L (22-28); Base Excess (BEa) 7.4 mEq/L (-2.0 to +3.0); Calcium, Ionized (arterial) 1.04 mmol/L (1.12-1.30); Carboxyhemoglobin (COHb) 1.2 gm% (0.0-3.0); Hemoglobin (Hb) 9.1 g/dL (12.0-16.0); O2 Tension (PaO2), arterial 86.3 mmHg (> 60.0); pH, Arterial 7.44 (7.35-7.45)
[2020-08-11 07:28] LABS: Puncture Site RBA
[2020-08-11] MEDS: Potassium Chloride 20 MEQ in Premix Bag 1 BAG IVPB SCH ×2 (07:49→08:59)
[2020-08-11] MEDS: Carvedilol 6.25 MG TAB PO SCH ×3 (08:38→20:43)
[2020-08-11] MEDS: Amiodarone 200 MG TAB PO SCH (08:59)
[2020-08-11] MEDS: Anastrozole 1 MG TAB PO SCH (08:59)
[2020-08-11] MEDS: Pantoprazole 40 MG VIAL IVP SCH ×2 (09:00→20:47)
[2020-08-11] MEDS: Torsemide 20 MG TAB PO SCH (09:00)
[2020-08-11 14:35] LABS: Vancomycin, Random 18.2 ug/mL (See Comment)
[2020-08-11] MEDS ORDERED: Vancomycin 1 GM in Premix Bag 1 BAG IVPB SCH (15:00)
[2020-08-11] MEDS ORDERED: VANCOMYCIN 1.25 GM/250 ML BAG 1.25 GM in Premix Bag 1 BAG IVPB SCH (15:00)
[2020-08-11] MEDS: Polyethylene Glycol 3350 17 GM Packet PO SCH (20:47)
[2020-08-11] MEDS: traZODone HCl 50 MG TAB PO PRN (20:47)
[2020-08-12] MEDS: Norepinephrine 8 MG/0.9% NS 250 ML IVPB PRN (00:08)
[2020-08-12] MEDS: Piperacillin/Tazobactam 2.25 GM in Sodium Chloride 0.9% 100 ML IVPB SCH ×4 (00:10→17:29)
[2020-08-12 04:03] LABS: Hemoglobin 8.4 g/dL (12.0-16.0); Mean Corpuscular HGB CONC 32.6 g/dL (32.0-36.0); Mean Platelet Volume 8.5 fL (7.4-10.4); Platelet Count 216 thou/uL (130-400); RBC Distribution Width 14.8 % (11.5-14.5); Red Blood Cell (RBC) Count 2.41 mill/uL (4.20-5.40)
[2020-08-12 04:14] LABS: Eosinophils 3 % (0-10); Lymphocytes 13 % (21-51); MDiff Complete? YES; Metamyelocyte 1 % (0-0); Monocytes 3 % (0-10); Neutrophil 80 % (42-75); Platelet Morphology Comment Appears Adequate
[2020-08-12 04:22] LABS: Anion Gap 9 mmol/L (10-20); BUN (Urea Nitrogen) 44 mg/dL (9.8-20.1); Calc. Creatinine Clearance 34 mL/min (70-130); Calcium 8.3 mg/dL (7.8-10.44); Carbon Dioxide 31 mmol/L (23-31); Chloride 109 mmol/L (98-107); Glucose 168 mg/dL (83-110); Potassium 3.3 mmol/L (3.5-5.1); Sodium 146 mmol/L (136-145)
[2020-08-12 04:29] LABS: ALT (SGPT) 13 U/L (8-55); AST (SGOT) 14 U/L (5-34); Albumin 2.4 g/dL (3.4-4.8); Alkaline Phosphatase 56 U/L (40-110); Bilirubin, Direct 2.5 mg/dL (0.1-0.3); Bilirubin, Total 3.4 mg/dL (0.2-1.2); Protein, Total 5.2 g/dL (5.8-8.1)
[2020-08-12] MEDS: Levothyroxine Sodium 125 MCG TAB PO SCH (06:28)
[2020-08-12] MEDS ORDERED: Potassium Chloride 40 MEQ in Premix Bag 1 BAG IVPB SCH (07:00)
[2020-08-12 07:03] LABS: Actual Bicarbonate (HCO3a) 31.2 mEq/L (22-28); Base Excess (BEa) 5.6 mEq/L (-2.0 to +3.0); CO2 Tension 52.2 mmHg (35.0-45.0); Calcium, Ionized (arterial) 1.11 mmol/L (1.12-1.30); Carboxyhemoglobin (COHb) 1.5 gm% (0.0-3.0); Hemoglobin (Hb) 8.8 g/dL (12.0-16.0); O2 Tension (PaO2), arterial 95.2 mmHg (> 60.0); Potassium - ABG Lab 3.28 mmol/L (3.70-5.30)
[2020-08-12 07:05] LABS: Puncture Site RBA
[2020-08-12] MEDS: Pantoprazole 40 MG VIAL IVP SCH ×2 (08:22→21:35)
[2020-08-12] MEDS: Amiodarone 200 MG TAB PO SCH (08:22)
[2020-08-12] MEDS: Carvedilol 6.25 MG TAB PO SCH ×3 (08:23→21:34)
[2020-08-12] MEDS: Anastrozole 1 MG TAB PO SCH (08:23)
[2020-08-12] MEDS: Torsemide 20 MG TAB PO SCH (08:24)
[2020-08-12 14:46] LABS: Vancomycin, Random 19.2 ug/mL (See Comment)
[2020-08-12] MEDS ORDERED: Vancomycin HCl 750 MG in Sodium Chloride 0.9% 250 ML 250 ML IVPB SCH ×2 (16:00→18:00)
[2020-08-12] MEDS: Polyethylene Glycol 3350 17 GM Packet PO SCH (21:35)
[2020-08-13] MEDS: Piperacillin/Tazobactam 2.25 GM in Sodium Chloride 0.9% 100 ML IVPB SCH ×4 (00:23→18:28)
[2020-08-13] MEDS: Norepinephrine 8 MG/0.9% NS 250 ML IVPB PRN ×2 (02:46→19:16)
[2020-08-13 05:16] LABS: Band 1 % (5-11); Eosinophils 2 % (0-10); Hemoglobin 7.9 g/dL (12.0-16.0); Hypochromia SLIGHT = 6-15 cells (100X) (0-5/hpf); Lymphocytes 12 % (21-51); MDiff Complete? YES; Macrocytosis SLIGHT = 6-15 cells (100X) (0-5/hpf); Mean Corpuscular HGB CONC 30.4 g/dL (32.0-36.0); Mean Platelet Volume 8.8 fL (7.4-10.4); Monocytes 4 % (0-10); Neutrophil 81 % (42-75); Platelet Count 206 thou/uL (130-400); Platelet Morphology Comment Appears Adequate; RBC Distribution Width 14.7 % (11.5-14.5); Red Blood Cell (RBC) Count 2.39 mill/uL (4.20-5.40)
[2020-08-13 05:19] LABS: INR-International Normal Ratio 1.6; Prothrombin Time 19.4 sec (12.0-14.7)
[2020-08-13 05:41] LABS: Anion Gap 7 mmol/L (10-20); BUN (Urea Nitrogen) 44 mg/dL (9.8-20.1); Calc. Creatinine Clearance 39 mL/min (70-130); Calcium 8.3 mg/dL (7.8-10.44); Carbon Dioxide 36 mmol/L (23-31); Chloride 111 mmol/L (98-107); Glucose 164 mg/dL (83-110); Iron 13 ug/dL (50-170); Iron Binding Capacity, Total 154 mcg/dL (265-497); Potassium 3.7 mmol/L (3.5-5.1); Sodium 150 mmol/L (136-145)
[2020-08-13 05:44] LABS: ALT (SGPT) 12 U/L (8-55); AST (SGOT) 13 U/L (5-34); Albumin 2.4 g/dL (3.4-4.8); Alkaline Phosphatase 70 U/L (40-110); Bilirubin, Direct 2.1 mg/dL (0.1-0.3); Bilirubin, Total 2.8 mg/dL (0.2-1.2); Protein, Total 5.3 g/dL (5.8-8.1)
[2020-08-13 05:57] LABS: Ferritin 789.17 ng/mL (10-291)
[2020-08-13 06:11] LABS: HBCM Index 0.08 S/CO (0-0.79); HBSAg Index 0.22 S/CO (0-0.99); Hep A IgM AB Non-Reactive (NonReactive); Hep B Surf Ag Non-Reactive S/CO (NonReactive); Hep C IgG Ab Non-Reactive (NonReactive); Hep C Index 0.09 S/CO (0-0.79); Hepatitis B Core IgM Abs Non-Reactive (NonReactive)
[2020-08-13] MEDS: Levothyroxine Sodium 125 MCG TAB PO SCH (06:13)
[2020-08-13 06:39] LABS: Hep A IgM S/CO 0.08 S/CO (0-0.79)
[2020-08-13 06:57] LABS: Actual Bicarbonate (HCO3a) 30.5 mEq/L (22-28); Base Excess (BEa) 5.2 mEq/L (-2.0 to +3.0); CO2 Tension 49.4 mmHg (35.0-45.0); Calcium, Ionized (arterial) 1.12 mmol/L (1.12-1.30); Carboxyhemoglobin (COHb) 1.2 gm% (0.0-3.0); O2 Tension (PaO2), arterial 84.3 mmHg (> 60.0); Potassium - ABG Lab 3.79 mmol/L (3.70-5.30); pH, Arterial 7.41 (7.35-7.45)
[2020-08-13 07:07] LABS: Puncture Site RRA
[2020-08-13] MEDS: Amiodarone 200 MG TAB PO SCH (08:49)
[2020-08-13] MEDS: Torsemide 20 MG TAB PO SCH (08:49)
[2020-08-13] MEDS: Pantoprazole 40 MG VIAL IVP SCH ×2 (08:49→21:02)
[2020-08-13] MEDS: Carvedilol 6.25 MG TAB PO SCH ×2 (08:49→14:33)
[2020-08-13] MEDS: Anastrozole 1 MG TAB PO SCH (08:49)
[2020-08-13] MEDS: Morphine 4 MG/ML VIAL SLOW IVP PRN (11:11)
[2020-08-13 12:04] VITALS: BMI 42.1
[2020-08-13] MEDS ORDERED: Acetaminophen 650 MG/20.3 ML UDCUP PO PRN (13:40)
[2020-08-13] MEDS ORDERED: Vancomycin 1 GM in Premix Bag 1 BAG IVPB SCH (15:00)
[2020-08-13] MEDS: Polyethylene Glycol 3350 17 GM Packet PO SCH (21:55)
[2020-08-14] MEDS: Piperacillin/Tazobactam 2.25 GM in Sodium Chloride 0.9% 100 ML IVPB SCH ×5 (00:27→22:26)
[2020-08-14 03:52] LABS: Mean Corpuscular HGB CONC 29.8 g/dL (32.0-36.0); Mean Corpuscular Hemoglobin 32.7 pg (27.0-31.0); Mean Platelet Volume 8.6 fL (7.4-10.4); Platelet Count 235 thou/uL (130-400); RBC Distribution Width 14.6 % (11.5-14.5); Red Blood Cell (RBC) Count 2.45 mill/uL (4.20-5.40); White Blood Cell (WBC) Count 8.5 thou/uL (4.8-10.8)
[2020-08-14 04:11] LABS: ALT (SGPT) 11 U/L (8-55); AST (SGOT) 11 U/L (5-34); Albumin 2.5 g/dL (3.4-4.8); Alkaline Phosphatase 49 U/L (40-110); Anion Gap 10 mmol/L (10-20); BUN (Urea Nitrogen) 49 mg/dL (9.8-20.1); Bilirubin, Direct 2.2 mg/dL (0.1-0.3); Bilirubin, Total 2.9 mg/dL (0.2-1.2); Calc. Creatinine Clearance 34 mL/min (70-130); Calcium 8.9 mg/dL (7.8-10.44); Carbon Dioxide 31 mmol/L (23-31); Chloride 113 mmol/L (98-107); Glucose 126 mg/dL (83-110); Potassium 4.2 mmol/L (3.5-5.1); Protein, Total 5.7 g/dL (5.8-8.1); Sodium 150 mmol/L (136-145)
[2020-08-14] MEDS: Norepinephrine 8 MG/0.9% NS 250 ML IVPB PRN (05:00)
[2020-08-14] MEDS: Levothyroxine Sodium 125 MCG TAB PO SCH ×2 (05:10→20:22)
[2020-08-14] MEDS: Pantoprazole 40 MG VIAL IVP SCH ×2 (09:00→19:49)
[2020-08-14] MEDS: Amiodarone 200 MG TAB PO SCH (14:08)
[2020-08-14] MEDS: Torsemide 20 MG TAB PO SCH (14:09)
[2020-08-14] MEDS ORDERED: Acetaminophen 650 MG Suppository PR PRN (15:58)
[2020-08-14 18:11] VITALS: TEMP 97.5
[2020-08-14] MEDS: Polyethylene Glycol 3350 17 GM Packet PO SCH (18:54)
[2020-08-14] MEDS: Morphine 4 MG/ML VIAL SLOW IVP PRN ×3 (19:48→23:46)
[2020-08-14 20:45] VITALS: BP 79/47
[2020-08-15 13:15] LABS: Smooth Muscle Total ABS 15 Units (0-19)
[2020-08-15 15:47] LABS: ANA Symphony (Qualitative) Negative (Negative); ANA Symphony (Quantitative) 0.2 Ratio (< 0.7 Negative); EliA Vaculitis New Method **** NEW METHOD ****; Mitochondrial Ab 1.4 U/mL (<4 Negative); dsDNA IgG Antibody 0.8 IU/mL (<10 Negative)
[2020-08-18 14:37] LABS: Alpha-1-Antitrypsin 310 mg/dL (101-187)
== END 2020-08-15 00:05 | disposition expired | DRG 393 ==
LOC: ERS 14:28 → 2NO 16:26 → OBSVTOIN 17:35 → CCU 08-09 19:20 → T4-B 08-14 14:59
PROVIDERS: ADMIT Hospitalist; ATTEND Internal Medicine
PROC: 0DB68ZX Excision of Stomach, Via Natural or Artificial Opening Endoscopic, Diagnostic (ICD-10-PCS; principal; 2020-08-09)
PROC: 3E033XZ Introduction of Vasopressor into Peripheral Vein, Percutaneous Approach (ICD-10-PCS; 2020-08-09)
PROC: 5A1945Z Respiratory Ventilation, 24-96 Consecutive Hours (ICD-10-PCS; 2020-08-09)
PROC: 02HV33Z Insertion of Infusion Device into Superior Vena Cava, Percutaneous Approach (ICD-10-PCS; 2020-08-09)
PROC: B548ZZA Ultrasonography of Superior Vena Cava, Guidance (ICD-10-PCS; 2020-08-09)
PROC: 0BH18EZ Insertion of Endotracheal Airway into Trachea, Via Natural or Artificial Opening Endoscopic (ICD-10-PCS; 2020-08-09)
PROC: 3E0G8GC Introduction of Other Therapeutic Substance into Upper GI, Via Natural or Artificial Opening Endoscopic (ICD-10-PCS; 2020-08-09)
DX: K31.7 Polyp of stomach and duodenum (principal); I50.23 Acute on chronic systolic (congestive) heart failure; J69.0 Pneumonitis due to inhalation of food and vomit; J96.01 Acute respiratory failure with hypoxia; J96.02 Acute respiratory failure with hypercapnia; E87.0 Hyperosmolality and hypernatremia; K91.840 Postprocedural hemorrhage of a digestive system organ or structure following a digestive system procedure; D62 Acute posthemorrhagic anemia; N18.4 Chronic kidney disease, stage 4 (severe); I13.0 Hypertensive heart and chronic kidney disease with heart failure and stage 1 through stage 4 chronic kidney disease, or unspecified chronic kidney disease; N17.9 Acute kidney failure, unspecified; I85.00 Esophageal varices without bleeding; I42.9 Cardiomyopathy, unspecified; Z68.41 Body mass index [BMI] 40.0-44.9, adult; Z20.822 Contact with and (suspected) exposure to COVID-19; Z51.5 Encounter for palliative care; Z66 Do not resuscitate; R79.1 Abnormal coagulation profile; R94.5 Abnormal results of liver function studies; E03.9 Hypothyroidism, unspecified; E78.5 Hyperlipidemia, unspecified; M81.0 Age-related osteoporosis without current pathological fracture; M19.90 Unspecified osteoarthritis, unspecified site; I48.0 Paroxysmal atrial fibrillation; E66.9 Obesity, unspecified; T45.515A Adverse effect of anticoagulants, initial encounter; D75.89 Other specified diseases of blood and blood-forming organs; E61.1 Iron deficiency; K82.8 Other specified diseases of gallbladder; D63.1 Anemia in chronic kidney disease; N28.1 Cyst of kidney, acquired; E87.6 Hypokalemia; Y84.8 Other medical procedures as the cause of abnormal reaction of the patient, or of later complication, without mention of misadventure at the time of the procedure; I95.9 Hypotension, unspecified; Z85.3 Personal history of malignant neoplasm of breast; Z86.73 Personal history of transient ischemic attack (TIA), and cerebral infarction without residual deficits; Z78.1 Physical restraint status; Z95.0 Presence of cardiac pacemaker; Z79.01 Long term (current) use of anticoagulants; Z95.2 Presence of prosthetic heart valve; Z90.12 Acquired absence of left breast and nipple; Z79.899 Other long term (current) drug therapy; Z88.2 Allergy status to sulfonamides; Z88.6 Allergy status to analgesic agent; Z87.440 Personal history of urinary (tract) infections; Z90.49 Acquired absence of other specified parts of digestive tract; Z98.42 Cataract extraction status, left eye; Z79.891 Long term (current) use of opiate analgesic; Z98.41 Cataract extraction status, right eye; Z90.710 Acquired absence of both cervix and uterus; Z79.890 Hormone replacement therapy
CPT/HCPCS: 36415; 36416; 36600; 51701; 71045; 74022; 76705; 80048; 80053; 80074; 80076; 80202; 81003; 82103; 82104; 82105; 82140; 82607; 82728; 82746; 82805; 83516; 83540; 83550; 83605; 83690; 83735; 83880; 85007; 85014; 85018; 85025; 85027; 85610; 85730; 86038; 86225; 86850; 86900; 86901; 88305; 88312; 93005; 94003; C9113; G0378; J0171; J2270; J2543; J2704; J3010; J3370; J3480; J3490; J7030; J7050; U0002